=== PATIENT | female | born 1950 | race Caucasian/White ===

== ENCOUNTER 2017-07-12 08:46 | Observation (INO) | payer BC, OTHER ==
[2017-07-12] MEDS ORDERED: Sodium Chloride 0.9% 1,000 ML IV ONE (08:49)
--- NOTE | 2017-07-12 08:51 | EDM.PDOC ---
ED HPI GENERAL MEDICAL PROBLEM - General Stated Complaint: ABDOMINAL PAIN Time Seen by Provider: 07/12/17 08:50 Source of Information: Reports: Patient - History of Present Illness INITIAL COMMENTS - FREE TEXT/NARRATIVE: HISTORY AND PHYSICAL: History of present illness: She presents via EMS, EMS was called due to abdominal pain he found patient to be atrial fibrillation with a rate up to 180, this had improved by arrival to the emergency room Complaint of abdominal pain/epigastric pain 5 out of 10 radiating to the back, pain began yesterday with 2 out of 10 increasing to 8 out of 10 this morning resulting in calling the EMS, received 2 of morphine here in the ER pain now 5 out of 10 patient in no distress History of atrial fibrillation her rate has been up to the 130s per EMS on arrival rate is 101 Patient has a known history of atrial fibrillation and MTHFR deficiency Review of systems: As per history of present illness and below otherwise all systems reviewed and negative. Past medical history: As per history of present illness and as reviewed below otherwise noncontributory. Surgical history: As per history of present illness and as reviewed below otherwise noncontributory. Social history: No reported history of drug or alcohol abuse. Family history: As per history of present illness and as reviewed below otherwise noncontributory. Physical exam: HEENT: Atraumatic, normocephalic, pupils reactive, negative for conjunctival pallor or scleral icterus, mucous membranes moist, throat clear, neck supple, nontender, trachea midline. Lungs: Clear to auscultation, breath sounds equal bilaterally, chest nontender. Heart: S1S2, regular, negative for clicks, rubs, or JVD. Abdomen: Soft, nondistended, nontender. Negative for masses or hepatosplenomegaly. Negative for costovertebral tenderness. Pelvis: Stable nontender. Genitourinary: Deferred. Rectal: Deferred. Extremities: Atraumatic, negative for cords or calf pain. Neurovascular unremarkable. Neuro: Awake, alert, oriented. Cranial nerves II through XII unremarkable. Cerebellum unremarkable. Motor and sensory unremarkable throughout. Exam nonfocal. Diagnostics: [CBC CMP cardiac enzymes amylase lipase UA INR EKG Chest 1 view ]CT abdomen pelvis no contrast, initially contrast was ordered however creatinine is 1.5 Therapeutics: [Normal saline Morphine 2 mg IV Zofran 8 mg IV Lopressor 5 mg IV ] Impression: Abdominal pain [Atrial fibrillation with RVR, currently controlled Definitive disposition and diagnosis as appropriate pending reevaluation and review of above. Middle Abdominal Pain Score (Numeric/FACES): 9 Lower back Pain Score (Numeric/FACES): 6 - Related Data Allergies Allergy/AdvReac Type Severity Reaction Status Date / Time codeine Allergy Severe Respiratory Verified 07/12/17 09:31 Distress Home Meds: Home Meds Thyroid,Pork [Nature-Throid] 65 mg PO ASDIRECTED 07/12/17 [History] ED ROS GENERAL - Review of Systems Review Of Systems: ROS reveals no pertinent complaints other than HPI. ED EXAM, GENERAL - Physical Exam Exam: See Below Course - Vital Signs Last Recorded V/S: Last Vital Signs Temp 96.0 F 07/13/17 12:00 Pulse 82 07/13/17 12:00 Resp 20 07/13/17 12:00 BP 145/66 H 07/13/17 12:00 Pulse Ox 98 07/13/17 12:00 - Orders/Labs/Meds Labs: Laboratory Tests 07/12/17 07/12/17 07/12/17 Range/Units 09:11 09:11 09:11 WBC 5.06 (4.0-11.0) K/uL RBC 4.69 (4.30-5.90) M/uL Hgb 14.3 (12.0-16.0) g/dL Hct 42.2 (36.0-46.0) % MCV 90.0 (80.0-98.0) fL MCH 30.5 (27.0-32.0) pg MCHC 33.9 (31.0-37.0) g/dL RDW Std Deviation 43.0 (28.0-62.0) fl RDW Coeff of Tai 13 (11.0-15.0) % Plt Count 180 (150-400) K/uL MPV 12.00 (7.40-12.00) fL Neut % (Auto) 56.7 (48.0-80.0) % Lymph % (Auto) 35.6 (16.0-40.0) % [place] % (Auto) 6.7 (0.0-15.0) % Eos % (Auto) 0.6 (0.0-7.0) % Baso % (Auto) 0.4 (0.0-1.5) % Neut # (Auto) 2.9 (1.4-5.7) K/uL Lymph # (Auto) 1.8 (0.6-2.4) K/uL [place] # (Auto) 0.3 (0.0-0.8) K/uL Eos # (Auto) 0.0 (0.0-0.7) K/uL Baso # (Auto) 0.0 (0.0-0.1) K/uL Nucleated RBC % 0.0 /100WBC Nucleated RBCs # 0 K/uL INR Sodium 143 (136-145) mmol/L Potassium 3.8 (3.5-5.1) mmol/L Chloride 109 H (98-107) mmol/L Carbon Dioxide 19.3 L (21.0-32.0) mmol/L BUN 25 H (7.0-18.0) mg/dL Creatinine 1.5 H (0.6-1.0) mg/dL Est Cr Clr Drug Dosing 35.47 mL/min Estimated GFR (MDRD) 35.0 ml/min Glucose 150 H (74-106) mg/dL Calcium 9.0 (8.5-10.1) mg/dL Total Bilirubin 0.3 (0.2-1.0) mg/dL AST 20 (15-37) IU/L ALT 22 (14-63) IU/L Alkaline Phosphatase 69 (46-116) U/L Creatine Kinase 97 (26-308) U/L CK-MB (CK-2) 1.0 (0-3.6) ng/mL Troponin I < 0.050 (0.000-0.056) ng/mL B-Natriuretic Peptide 226 H (<100) PG/ML Total Protein 6.6 (6.4-8.2) g/dL Albumin 3.2 L (3.4-5.0) g/dL Globulin 3.4 (2.0-3.5) g/dL Albumin/Globulin Ratio 0.9 L (1.3-2.8) Amylase 48 (25-115) U/L Lipase 113 (73-393) U/L Urine Color Urine Appearance Urine pH (5.0-8.0) Ur Specific [place] (1.001-1.035) Urine Protein (NEGATIVE) mg/dL Urine Glucose (UA) (NEGATIVE) mg/dL Urine Ketones (NEGATIVE) mg/dL Urine Occult Blood (NEGATIVE) Urine Nitrite (NEGATIVE) Urine Bilirubin (NEGATIVE) Urine Urobilinogen (<2.0) EU/dL Ur Leukocyte Esterase (NEGATIVE) Urine RBC (0-2/HPF) Urine WBC (0-5/HPF) Ur Epithelial Cells (NONE-FEW) Urine Bacteria (NEGATIVE) Urine Mucus (NONE-MOD) Urine Opiates Screen (NEGATIVE) Ur Oxycodone Screen (NEGATIVE) Urine Methadone Screen (NEGATIVE) Ur Barbiturates Screen (NEGATIVE) Ur Phencyclidine Scrn (NEGATIVE) Ur Amphetamine Screen (NEGATIVE) U Methamphetamines Scrn (NEGATIVE) U Benzodiazepines Scrn (NEGATIVE) U Cocaine Metab Screen (NEGATIVE) U Marijuana (THC) Screen (NEGATIVE) 07/12/17 07/12/17 07/12/17 Range/Units 10:18 12:02 12:02 WBC (4.0-11.0) K/uL RBC (4.30-5.90) M/uL Hgb (12.0-16.0) g/dL Hct (36.0-46.0) % MCV (80.0-98.0) fL MCH (27.0-32.0) pg MCHC (31.0-37.0) g/dL RDW Std Deviation (28.0-62.0) fl RDW Coeff of Tai (11.0-15.0) % Plt Count (150-400) K/uL MPV (7.40-12.00) fL Neut % (Auto) (48.0-80.0) % Lymph % (Auto) (16.0-40.0) % [place] % (Auto) (0.0-15.0) % Eos % (Auto) (0.0-7.0) % Baso % (Auto) (0.0-1.5) % Neut # (Auto) (1.4-5.7) K/uL Lymph # (Auto) (0.6-2.4) K/uL [place] # (Auto) (0.0-0.8) K/uL Eos # (Auto) (0.0-0.7) K/uL Baso # (Auto) (0.0-0.1) K/uL Nucleated RBC % /100WBC Nucleated RBCs # K/uL INR 1.05 Sodium (136-145) mmol/L Potassium (3.5-5.1) mmol/L Chloride (98-107) mmol/L Carbon Dioxide (21.0-32.0) mmol/L BUN (7.0-18.0) mg/dL Creatinine (0.6-1.0) mg/dL Est Cr Clr Drug Dosing mL/min Estimated GFR (MDRD) ml/min Glucose (74-106) mg/dL Calcium (8.5-10.1) mg/dL Total Bilirubin (0.2-1.0) mg/dL AST (15-37) IU/L ALT (14-63) IU/L Alkaline Phosphatase (46-116) U/L Creatine Kinase (26-308) U/L CK-MB (CK-2) (0-3.6) ng/mL Troponin I (0.000-0.056) ng/mL B-Natriuretic Peptide (<100) PG/ML Total Protein (6.4-8.2) g/dL Albumin (3.4-5.0) g/dL Globulin (2.0-3.5) g/dL Albumin/Globulin Ratio (1.3-2.8) Amylase (25-115) U/L Lipase (73-393) U/L Urine Color YELLOW Urine Appearance CLEAR Urine pH 7.0 (5.0-8.0) Ur Specific [place] 1.015 (1.001-1.035) Urine Protein NEGATIVE (NEGATIVE) mg/dL Urine Glucose (UA) NEGATIVE (NEGATIVE) mg/dL Urine Ketones NEGATIVE (NEGATIVE) mg/dL Urine Occult Blood NEGATIVE (NEGATIVE) Urine Nitrite NEGATIVE (NEGATIVE) Urine Bilirubin NEGATIVE (NEGATIVE) Urine Urobilinogen 0.2 (<2.0) EU/dL Ur Leukocyte Esterase NEGATIVE (NEGATIVE) Urine RBC NONE SEEN (0-2/HPF) Urine WBC 0-1 (0-5/HPF) Ur Epithelial Cells RARE (NONE-FEW) Urine Bacteria RARE (NEGATIVE) Urine Mucus LIGHT (NONE-MOD) Urine Opiates Screen POSITIVE (NEGATIVE) Ur Oxycodone Screen NEGATIVE (NEGATIVE) Urine Methadone Screen NEGATIVE (NEGATIVE) Ur Barbiturates Screen NEGATIVE (NEGATIVE) Ur Phencyclidine Scrn NEGATIVE (NEGATIVE) Ur Amphetamine Screen NEGATIVE (NEGATIVE) U Methamphetamines Scrn NEGATIVE (NEGATIVE) U Benzodiazepines Scrn NEGATIVE (NEGATIVE) U Cocaine Metab Screen NEGATIVE (NEGATIVE) U Marijuana (THC) Screen NEGATIVE (NEGATIVE) Meds: Medications Discontinued Medications Generic Name Dose Route Start Last Admin Trade Name Freq PRN Reason Stop Dose Admin Sodium Chloride 1,000 mls @ 999 mls/hr 07/12/17 08:49 07/12/17 09:16 Normal Saline IV 07/12/17 09:49 999 mls/hr STAT ONE Administration Sodium Chloride 1,000 mls @ 125 mls/hr 07/12/17 11:45 07/12/17 12:01 Normal Saline IV 125 mls/hr STAT DEEPALI Administration Sodium Chloride 1,000 mls @ 150 mls/hr 07/12/17 18:45 07/13/17 02:24 Normal Saline IV 150 mls/hr ASDIRECTED DEEPALI Administration Metoprolol Tartrate 5 mg 07/12/17 09:00 07/12/17 15:08 Lopressor IVPUSH 07/12/17 09:11 Not Given Q5M DEEPALI Morphine Sulfate 2 mg 07/12/17 08:55 07/12/17 09:09 Morphine IVPUSH 07/12/17 08:56 2 mg ONETIME ONE Administration Non-Formulary Medication 65 mg 07/12/17 21:15 Thyroid,Pork [Nature-Throid] PO ASDIRECTED DEEPALI Ondansetron HCl 8 mg 07/12/17 08:58 07/12/17 09:08 Zofran IVPUSH 07/12/17 08:59 8 mg ONETIME ONE Administration Pantoprazole Sodium 80 mg 07/12/17 11:35 07/12/17 12:01 Protonix Iv IVPUSH 07/12/17 11:36 80 mg .BOLUS ONE Administration [Nature-Throid] 65 1 each 07/13/17 07:00 07/13/17 14:36 Mg PO Not Given 0700,1300 [facility] Departure - Departure Time of Disposition: 07:58 Disposition: Refer to Observation Condition: Poor Clinical Impression: Atrial fibrillation - Discharge Information
[2017-07-12] MEDS ORDERED: Morphine 4 MG/ML Syringe IVPUSH ONE (08:55)
[2017-07-12] MEDS ORDERED: Ondansetron 4 MG/2 ML SDV IVPUSH ONE (08:58)
[2017-07-12] MEDS: Metoprolol Tartrate 5 MG/5 ML SDV IVPUSH SCH ×2 (09:20→15:08)
--- NOTE | 2017-07-12 10:00 | CR ---
EXAMINATION: Portable chest radiograph. HISTORY: Pain. FINDINGS: The trachea is midline. The cardiomediastinal silhouette is within normal limits. No pulmonary infilt rates, effusions or pneumothorax. Osseous structures appear unremarkable. IMPRESSION: No acute cardiopulmonary process.
[2017-07-12 10:40] LABS: CHLORIDE,CL 109 mmol/L (98-107); SODIUM,NA 143 mmol/L (136-145)
[2017-07-12] MEDS ORDERED: Pantoprazole 40 MG Vial IVPUSH ONE (11:35)
--- NOTE | 2017-07-12 11:43 | CT ---
CT of the abdomen and pelvis without contrast. HISTORY: Pain TECHNIQUE: Axial CT images were obtained of the abdomen and pelvis without contrast. Coronal and sagi ttal reconstructions obtained. FINDINGS: Mild atelectasis within the lung bases. Tiny hepatic cysts noted. The spleen, adrenal glands, and pancreas appear unremarkable for noncontras t examination. The gallbladder appears normal. There is no bulky retroperitoneal lymphadenopathy. No abdominal ascites. There are no calcifications noted within the kidneys or along the courses of the ureters bilaterally. Renal cortical and peripelvic cysts noted. The large and small bowel are normal in caliber without evidence of obstruction. Minimal diverticulos is without evidence of diverticulitis. The appendix is not well characterized. There is no bulky pelv ic lymphadenopathy. No free fluid. No free air. The urinary bladder appears normal. Mild compression deformity along the superior endplate of L1 age indeterminate. IMPRESSION: 1. No acute findings within the abdomen or pelvis. 2. Mild compression deformity along the superior endplate of L1. 3. Minimal diverticulosis.
[2017-07-12] MEDS ORDERED: Sodium Chloride 0.9% 1,000 ML IV SCH (11:45)
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
[2017-07-12] MEDS: Sodium Chloride 0.9% 1,000 ML IV SCH (20:10)
[2017-07-12] MEDS ORDERED: Non-Formulary Medication 1 Each (Thyroid,Pork [Nature-Throid] 65 MG) PO SCH (21:15)
[2017-07-13] MEDS: Sodium Chloride 0.9% 1,000 ML IV SCH (02:24)
[2017-07-13] MEDS: NATURE THROID 65 MG PO SCH ×2 (07:00→14:36)
--- NOTE | 2017-07-13 11:52 | PCM.DCSUM1 ---
Discharge Summary - Discharge Data Discharge Date: 07/13/17 Discharge Disposition: Home, Self-Care 01 Condition: Stable - Discharge Diagnosis/Problem(s) (1) Atrial fibrillation SNOMED Code(s): 66163469 ICD Code: I48.91 - UNSPECIFIED ATRIAL FIBRILLATION Status: Acute (2) Abdominal pain SNOMED Code(s): 26088410 ICD Code: R10.9 - UNSPECIFIED ABDOMINAL PAIN Status: Acute - Discharge Plan Home Medications: Home Meds Thyroid,Pork [Nature-Throid] 65 mg PO ASDIRECTED 07/12/17 [History] Patient Handouts: Abdominal Pain, Adult, [id number], Atrial Fibrillation, [id number] Referrals: [facility] [Outside] Jayden Gonzalez MD [Resident] - 07/20/17 2:30 pm - Patient Data Vitals - Most Recent: Last Vital Signs Temp 36.1 C 07/13/17 08:00 Pulse 88 07/13/17 08:00 Resp 22 H 07/13/17 08:00 BP 150/59 H 07/13/17 08:00 Pulse Ox 96 07/13/17 08:00 Weight - Most Recent: 97.522 kg I&O - Last 24 hours: Intake & Output 07/12/17 07/13/17 07/13/17 22:59 06:59 14:59 Intake Total 999 995 Balance 999 995 Lab Results - Last 24 hrs: Laboratory Results - last 24 hr 07/12/17 07/12/17 07/12/17 Range/Units 12:02 12:02 17:05 WBC (4.0-11.0) K/uL RBC (4.30-5.90) M/uL Hgb (12.0-16.0) g/dL Hct (36.0-46.0) % MCV (80.0-98.0) fL MCH (27.0-32.0) pg MCHC (31.0-37.0) g/dL RDW Std Deviation (28.0-62.0) fl RDW Coeff of Tai (11.0-15.0) % Plt Count (150-400) K/uL MPV (7.40-12.00) fL Neut % (Auto) (48.0-80.0) % Lymph % (Auto) (16.0-40.0) % Nash % (Auto) (0.0-15.0) % Eos % (Auto) (0.0-7.0) % Baso % (Auto) (0.0-1.5) % Neut # (Auto) (1.4-5.7) K/uL Lymph # (Auto) (0.6-2.4) K/uL Nash # (Auto) (0.0-0.8) K/uL Eos # (Auto) (0.0-0.7) K/uL Baso # (Auto) (0.0-0.1) K/uL Nucleated RBC % /100WBC Nucleated RBCs # K/uL Lactate 2.1 H (0.20-2.00) mmol/L Magnesium (1.5-2.0) mg/dL Troponin I (0.000-0.056) ng/mL TSH 3rd Generation (0.36-3.74) uIU/mL Urine Color YELLOW Urine Appearance CLEAR Urine pH 7.0 (5.0-8.0) Ur Specific [place] 1.015 (1.001-1.035) Urine Protein NEGATIVE (NEGATIVE) mg/dL Urine Glucose (UA) NEGATIVE (NEGATIVE) mg/dL Urine Ketones NEGATIVE (NEGATIVE) mg/dL Urine Occult Blood NEGATIVE (NEGATIVE) Urine Nitrite NEGATIVE (NEGATIVE) Urine Bilirubin NEGATIVE (NEGATIVE) Urine Urobilinogen 0.2 (<2.0) EU/dL Ur Leukocyte Esterase NEGATIVE (NEGATIVE) Urine RBC NONE SEEN (0-2/HPF) Urine WBC 0-1 (0-5/HPF) Ur Epithelial Cells RARE (NONE-FEW) Urine Bacteria RARE (NEGATIVE) Urine Mucus LIGHT (NONE-MOD) Urine Opiates Screen POSITIVE (NEGATIVE) Ur Oxycodone Screen NEGATIVE (NEGATIVE) Urine Methadone Screen NEGATIVE (NEGATIVE) Ur Barbiturates Screen NEGATIVE (NEGATIVE) Ur Phencyclidine Scrn NEGATIVE (NEGATIVE) Ur Amphetamine Screen NEGATIVE (NEGATIVE) U Methamphetamines Scrn NEGATIVE (NEGATIVE) U Benzodiazepines Scrn NEGATIVE (NEGATIVE) U Cocaine Metab Screen NEGATIVE (NEGATIVE) U Marijuana (THC) Screen NEGATIVE (NEGATIVE) 07/12/17 07/12/17 07/12/17 Range/Units 17:05 19:06 22:34 WBC (4.0-11.0) K/uL RBC (4.30-5.90) M/uL Hgb (12.0-16.0) g/dL Hct (36.0-46.0) % MCV (80.0-98.0) fL MCH (27.0-32.0) pg MCHC (31.0-37.0) g/dL RDW Std Deviation (28.0-62.0) fl RDW Coeff of Tai (11.0-15.0) % Plt Count (150-400) K/uL MPV (7.40-12.00) fL Neut % (Auto) (48.0-80.0) % Lymph % (Auto) (16.0-40.0) % Nash % (Auto) (0.0-15.0) % Eos % (Auto) (0.0-7.0) % Baso % (Auto) (0.0-1.5) % Neut # (Auto) (1.4-5.7) K/uL Lymph # (Auto) (0.6-2.4) K/uL Nash # (Auto) (0.0-0.8) K/uL Eos # (Auto) (0.0-0.7) K/uL Baso # (Auto) (0.0-0.1) K/uL Nucleated RBC % /100WBC Nucleated RBCs # K/uL Lactate 1.8 (0.20-2.00) mmol/L Magnesium 1.7 (1.5-2.0) mg/dL Troponin I < 0.050 < 0.050 (0.000-0.056) ng/mL TSH 3rd Generation 1.78 (0.36-3.74) uIU/mL Urine Color Urine Appearance Urine pH (5.0-8.0) Ur Specific [place] (1.001-1.035) Urine Protein (NEGATIVE) mg/dL Urine Glucose (UA) (NEGATIVE) mg/dL Urine Ketones (NEGATIVE) mg/dL Urine Occult Blood (NEGATIVE) Urine Nitrite (NEGATIVE) Urine Bilirubin (NEGATIVE) Urine Urobilinogen (<2.0) EU/dL Ur Leukocyte Esterase (NEGATIVE) Urine RBC (0-2/HPF) Urine WBC (0-5/HPF) Ur Epithelial Cells (NONE-FEW) Urine Bacteria (NEGATIVE) Urine Mucus (NONE-MOD) Urine Opiates Screen (NEGATIVE) Ur Oxycodone Screen (NEGATIVE) Urine Methadone Screen (NEGATIVE) Ur Barbiturates Screen (NEGATIVE) Ur Phencyclidine Scrn (NEGATIVE) Ur Amphetamine Screen (NEGATIVE) U Methamphetamines Scrn (NEGATIVE) U Benzodiazepines Scrn (NEGATIVE) U Cocaine Metab Screen (NEGATIVE) U Marijuana (THC) Screen (NEGATIVE) 07/13/17 Range/Units 05:43 WBC 5.73 (4.0-11.0) K/uL RBC 4.12 L (4.30-5.90) M/uL Hgb 12.5 (12.0-16.0) g/dL Hct 37.3 (36.0-46.0) % MCV 90.5 (80.0-98.0) fL MCH 30.3 (27.0-32.0) pg MCHC 33.5 (31.0-37.0) g/dL RDW Std Deviation 43.8 (28.0-62.0) fl RDW Coeff of Tai 13 (11.0-15.0) % Plt Count 160 (150-400) K/uL MPV 11.50 (7.40-12.00) fL Neut % (Auto) 53.1 (48.0-80.0) % Lymph % (Auto) 38.6 (16.0-40.0) % Nash % (Auto) 7.2 (0.0-15.0) % Eos % (Auto) 0.9 (0.0-7.0) % Baso % (Auto) 0.2 (0.0-1.5) % Neut # (Auto) 3.1 (1.4-5.7) K/uL Lymph # (Auto) 2.2 (0.6-2.4) K/uL Nash # (Auto) 0.4 (0.0-0.8) K/uL Eos # (Auto) 0.1 (0.0-0.7) K/uL Baso # (Auto) 0.0 (0.0-0.1) K/uL Nucleated RBC % 0.0 /100WBC Nucleated RBCs # 0 K/uL Lactate (0.20-2.00) mmol/L Magnesium (1.5-2.0) mg/dL Troponin I (0.000-0.056) ng/mL TSH 3rd Generation (0.36-3.74) uIU/mL Urine Color Urine Appearance Urine pH (5.0-8.0) Ur Specific [place] (1.001-1.035) Urine Protein (NEGATIVE) mg/dL Urine Glucose (UA) (NEGATIVE) mg/dL Urine Ketones (NEGATIVE) mg/dL Urine Occult Blood (NEGATIVE) Urine Nitrite (NEGATIVE) Urine Bilirubin (NEGATIVE) Urine Urobilinogen (<2.0) EU/dL Ur Leukocyte Esterase (NEGATIVE) Urine RBC (0-2/HPF) Urine WBC (0-5/HPF) Ur Epithelial Cells (NONE-FEW) Urine Bacteria (NEGATIVE) Urine Mucus (NONE-MOD) Urine Opiates Screen (NEGATIVE) Ur Oxycodone Screen (NEGATIVE) Urine Methadone Screen (NEGATIVE) Ur Barbiturates Screen (NEGATIVE) Ur Phencyclidine Scrn (NEGATIVE) Ur Amphetamine Screen (NEGATIVE) U Methamphetamines Scrn (NEGATIVE) U Benzodiazepines Scrn (NEGATIVE) U Cocaine Metab Screen (NEGATIVE) U Marijuana (THC) Screen (NEGATIVE) Med Orders - Current: Current Medications Sodium Chloride (Normal Saline) 1,000 mls @ 150 mls/hr IV ASDIRECTED [facility] Last Admin: 07/13/17 02:24 Dose: 150 mls/hr [Nature-Throid] 65 (Mg) 1 each PO 0700,1300 [facility] Discontinued Medications Sodium Chloride (Normal Saline) 1,000 mls @ 999 mls/hr IV STAT ONE Stop: 07/12/17 09:49 Last Admin: 07/12/17 09:16 Dose: 999 mls/hr Sodium Chloride (Normal Saline) 1,000 mls @ 125 mls/hr IV STAT [facility] Last Admin: 07/12/17 12:01 Dose: 125 mls/hr Metoprolol Tartrate (Lopressor) 5 mg IVPUSH Q5M [facility] Stop: 07/12/17 09:11 Last Admin: 07/12/17 15:08 Dose: Not Given Morphine Sulfate (Morphine) 2 mg IVPUSH ONETIME ONE Stop: 07/12/17 08:56 Last Admin: 07/12/17 09:09 Dose: 2 mg Non-Formulary Medication (Thyroid,Pork [Nature-Throid]) 65 mg PO ASDIRECTED [facility] Ondansetron HCl (Zofran) 8 mg IVPUSH ONETIME ONE Stop: 07/12/17 08:59 Last Admin: 07/12/17 09:08 Dose: 8 mg Pantoprazole Sodium (Protonix Iv) 80 mg IVPUSH .BOLUS ONE Stop: 07/12/17 11:36 Last Admin: 07/12/17 12:01 Dose: 80 mg
== END 2017-07-13 13:00 | disposition home or self-care (01) ==
LOC: MW.ED 08:46 → MW.MS 12:59
PROVIDERS: ADMIT Internal Medicine; ATTEND Internal Medicine
DX: I48.91 Unspecified atrial fibrillation (principal); R10.9 Unspecified abdominal pain; E03.9 Hypothyroidism, unspecified; Z88.5 Allergy status to narcotic agent
CPT/HCPCS: 36415; 71045; 74176; 80053; 80305; 81001; 82150; 82550; 82553; 83605; 83690; 83735; 83880; 84443; 84484; 85025; 85610; 93005; 96361; 96374; 96375; 99285; C9113; J2270; J2405; J7040; 99283

== ENCOUNTER 2018-01-11 05:47 | Emergency (ER) | payer MEDICARE, BC ==
[2018-01-11] MEDS ORDERED: Sodium Chloride 0.9% 2.5 ML Syringe FLUSH PRN (06:26)
[2018-01-11] MEDS ORDERED: Sodium Chloride 0.9% 10 ML Syringe FLUSH PRN (06:26)
[2018-01-11] MEDS ORDERED: Sodium Chloride 0.9% 1,000 ML IV ONE (07:05)
[2018-01-11 07:07] LABS: CHLORIDE,CL 107 mmol/L (98-107); SODIUM,NA 140 mmol/L (136-145)
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
[2018-01-11] MEDS ORDERED: Iopamidol 612 MG/ML 75 ML Bottle IVPUSH ONE (07:45)
[2018-01-11] MEDS ORDERED: Pantoprazole 40 MG Vial IVPUSH ONE ×2 (08:29→10:33)
--- NOTE | 2018-01-11 11:28 | CT ---
EXAM DATE: 01/11/18 PATIENT'S AGE: 67 Patient: JANENE MEJIA Facility: [place], [place] Site . Site : 1950 Study: CT Abdomen/Pelvis -01/11/2018 7:48:28 AM Ordering Physician: Amy Corrales Final Report: INDICATION: Left upper quadrant abdominal pain. TECHNIQUE: Contrast-enhanced CT of the abdomen and pelvis. 75 cc nonionic Isovue-300 administered. COMPARISON: July 12, 2017. FINDINGS: Clear included lung bases. The liver is negative for masses or biliary dilatation. The spleen is not enlarged. The pancreas, gallbladder, and adrenal glands are within normal limits. Small right renal cysts. No hydronephrosis. No stone or solid renal mass. There is likely a tiny esophageal hiatal hernia. The stomach appears to be mildly thick-walled but it is largely decompressed. Some degree of gastritis could not be entirely excluded. Please correlate clinically. Minimal vascular calcification within a normal caliber abdominal aorta and iliac arteries. Absent uterus and likely the ovaries as well. No evidence for appendicitis or diverticular disease. No bowel obstruction or ileus and no ascites or lymphadenopathy. Degenerative disc disease at L5. Superior endplate compression of L1 entirely unchanged. IMPRESSION: 1. No acute abdominopelvic process confidently identified. 2. The stomach is largely decompressed. Questionable mild gastric wall thickening. Clinical correlation suggested for any possible gastritis. Please note that all CT scans at this facility use dose modulation, iterative reconstruction, and/or weight-based dosing when appropriate to reduce radiation dose to as low as reasonably achievable. Dictated by Ambrose Plata MD @ Jan 11 2018 8:08AM (Electronic Signature) Report Signed by Proxy. KAREN
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
== END 2018-01-11 10:40 | disposition home or self-care (01) ==
LOC: MW.ED 05:47
DX: R10.12 Left upper quadrant pain (principal); I48.91 Unspecified atrial fibrillation; Z91.14 Patient's other noncompliance with medication regimen; Z88.5 Allergy status to narcotic agent; Z90.710 Acquired absence of both cervix and uterus; E03.9 Hypothyroidism, unspecified
CPT/HCPCS: 36415; 74177; 80053; 81001; 82150; 83690; 85025; 86677; 93005; 96361; 96374; 99284; C9113; J7040

== ENCOUNTER 2019-08-08 10:38 | Emergency (ER) | payer MEDICARE, BC ==
[2019-08-08] MEDS ORDERED: Sodium Chloride 0.9% 1,000 ML IV ONE (11:15)
[2019-08-08] MEDS ORDERED: Ketorolac 30 MG/ML SDV IVPUSH ONE (11:15)
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
--- NOTE | 2019-08-08 12:09 | CT ---
Head CT Technique: Multiple axial sections through the brain were obtained. Intravenous contrast was not utilized. Comparison: No prior intracranial imaging is available. Findings: Ventricles along with basal cisterns and sulci over the convexities are within normal limits for the patient's age. No abnormal parenchymal densities are seen. No evidence of intracranial hemorrhage. No midline shift or mass-effect is seen. Paranasal sinuses show nothing acute. Soft tissue density is noted within the posterior right mastoid sinus. Other portions of the mastoid sinuses appear clear. No acute calvarial abnormality is appreciated. Impression: 1. Soft tissue material within the right posterior mastoid sinus. This is most likely chronic unless patient has symptoms of right-sided mastoiditis. 2. No acute intracranial abnormality is appreciated. Diagnostic code #3 This report was dictated in MDT
[2019-08-08 12:21] LABS: CARBON DIOXIDE,CO2 26.3 mmol/L (21.0-32.0); POTASSIUM,K 5.1 mmol/L (3.5-5.1)
[2019-08-08] MEDS ORDERED: Cephalexin 500 MG Cap PO ONE (12:44)
== END 2019-08-08 13:00 | disposition home or self-care (01) ==
LOC: MW.ED 10:38
DX: G44.209 Tension-type headache, unspecified, not intractable (principal); K04.7 Periapical abscess without sinus; I48.91 Unspecified atrial fibrillation; E03.9 Hypothyroidism, unspecified; Z79.899 Other long term (current) drug therapy; Z88.5 Allergy status to narcotic agent; Z91.040 Latex allergy status
CPT/HCPCS: 36415; 70450; 80053; 85025; 85652; 86140; 96361; 96374; 99284; A9270; J1885; J7030; 99283

== ENCOUNTER 2019-08-08 19:24 | Emergency (ER) | payer MEDICARE, BC ==
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
== END 2019-08-08 20:16 | disposition home or self-care (01) ==
LOC: MW.ED 19:24
DX: B01.9 Varicella without complication (principal); M79.2 Neuralgia and neuritis, unspecified; I48.91 Unspecified atrial fibrillation; F32.9 Major depressive disorder, single episode, unspecified; E03.9 Hypothyroidism, unspecified; Z79.899 Other long term (current) drug therapy; Z88.5 Allergy status to narcotic agent; Z91.040 Latex allergy status
CPT/HCPCS: 99282; 99283

== ENCOUNTER 2019-08-10 10:32 | Emergency (ER) | payer MEDICARE, BC ==
[2019-08-10] MEDS ORDERED: predniSONE 20 MG Tab PO SCH (11:00)
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
[2019-08-10] MEDS ORDERED: Morphine 4 MG/ML Syringe IM ONE (11:43)
[2019-08-10] MEDS ORDERED: Ondansetron 4 MG Tab PO ONE (11:45)
== END 2019-08-10 13:30 | disposition home or self-care (01) ==
LOC: MW.ED 10:32
DX: B02.9 Zoster without complications (principal); I48.91 Unspecified atrial fibrillation; E03.9 Hypothyroidism, unspecified; F32.9 Major depressive disorder, single episode, unspecified; Z88.5 Allergy status to narcotic agent; Z91.040 Latex allergy status; Z91.09 Other allergy status, other than to drugs and biological substances; Z79.899 Other long term (current) drug therapy
CPT/HCPCS: 96372; 99283; A9270; J2270; 99282

== ENCOUNTER 2019-11-14 08:50 | Observation (INO) | payer MEDICARE, BC ==
[2019-11-14 10:28] LABS: BLOOD UREA NITROGEN,BUN 22 mg/dL (7.0-18.0); CARBON DIOXIDE,CO2 21.5 mmol/L (21.0-32.0); CHLORIDE,CL 104 mmol/L (98-107); GLUCOSE RANDOM 128 mg/dL (74-106); SODIUM,NA 138 mmol/L (136-145)
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
[2019-11-14] MEDS ORDERED: Acetaminophen 325 MG Tab PO PRN (15:14)
[2019-11-14] MEDS ORDERED: Albuterol/Ipratropium 3.0-0.5 MG/3 ML Neb Soln NEB PRN (15:14)
[2019-11-14] MEDS ORDERED: Sodium Chloride 0.9% 2.5 ML Syringe FLUSH PRN (15:14)
[2019-11-14] MEDS ORDERED: Docusate Sodium 100 MG Cap PO PRN (15:14)
[2019-11-14] MEDS ORDERED: Ondansetron 4 MG/2 ML SDV IVPUSH PRN (15:14)
[2019-11-14] MEDS ORDERED: Enoxaparin 40 MG/0.4 ML Syringe SUBCUT SCH (15:15)
[2019-11-14] MEDS ORDERED: Furosemide 40 MG/4 ML VIAL IVPUSH ONE (15:18)
[2019-11-14] MEDS ORDERED: traMADol 50 MG Tab PO PRN (15:19)
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
[2019-11-14] MEDS ORDERED: Pregabalin 25 MG Cap PO SCH (18:00)
[2019-11-14] MEDS ORDERED: traMADol 50 MG Tab **OWN MED PO PRN (20:44)
[2019-11-14] MEDS ORDERED: Magnesium Oxide 400 MG Tab PO SCH (21:00)
[2019-11-14] MEDS ORDERED: LIDOCAINE TRDERM SCH (21:00)
[2019-11-14] MEDS ORDERED: Lidocaine 5% 700 MG Patch TRDERM SCH (21:00)
[2019-11-14] MEDS ORDERED: Montelukast 10 MG Tab PO SCH (21:00)
[2019-11-14] MEDS ORDERED: FISH OIL PO SCH (21:00)
[2019-11-15 05:49] LABS: CARBON DIOXIDE,CO2 25.3 mmol/L (21.0-32.0); POTASSIUM,K 4.1 mmol/L (3.5-5.1)
[2019-11-15] MEDS ORDERED: LEVOTHYROXINE 0.137 MG PO SCH (07:30)
[2019-11-15] MEDS ORDERED: LEVOTHYROXINE SODIUM 137 MCG PO SCH (07:30)
[2019-11-15] MEDS: PREGABALIN 25 MG PO SCH ×2 (08:27→12:50)
[2019-11-15] MEDS ORDERED: COENZYME Q10 PO SCH (09:00)
--- NOTE | 2019-11-15 11:01 | PCM.DCSUM1 ---
<Flakito Lawrence M - Last Filed: 11/15/19 11:20> Discharge Summary - Hospital Course Free Text/Narrative:: 68-year-old female admitted for chest pain and shortness of breath. She has a PMH of atrial fibrillation, hypothyroidism, CKD and SAGAR. Patient noted that for the past few weeks she was having orthopnea, increasing leg edema and weight gain of 20 lbs since August 2019. CXR was unremarkable. Troponins were trended and were negative. BNP on admission was 431. UA unremarkable. ECHO ordered and is currently pending. Patient remained on telemetry during her hospitalization and noted to be in a-fib with HR of 70-100's. Patient responded to lasix which caused significant improvement in her leg edema and orthopnea. A diagnosis of heart failure was made and patient was started on lisinopril and lasix prn. She was also started on Eliquis for anticoagulation for a-fib as CHADSVASC score was 2. Recommend repeat sleep study. Advised to follow-up with PCP as well as nephrology and cardiology referrals. - Discharge Data Discharge Date: 11/15/19 Discharge Disposition: Home, Self-Care 01 Condition: Stable - Referral to Home Health Primary Care Physician: PCP None - Patient Instructions Diet: Low Sodium, Fluid Restriction Diet, Other: < 2 g salt daily Fluid Restriction: 2000 mL Activity: As Tolerated Notify Provider of: Fever, Increased Pain, Swelling and Redness, Drainage, Nausea and/or Vomiting Other/Special Instructions: shortness of breath. chest pain - Discharge Plan *PRESCRIPTION DRUG MONITORING PROGRAM REVIEWED*: Not Applicable *COPY OF PRESCRIPTION DRUG MONITORING REPORT IN PATIENT RENU: Not Applicable Prescriptions/Med Rec: Apixaban [Eliquis] 5 mg PO BID 30 Days #60 tablet Furosemide 20 mg PO DAILY PRN 30 Days #30 tablet PRN Reason: Other lisinopriL [Lisinopril] 10 mg PO DAILY 30 Days #30 tablet Home Medications: Home Meds Pure Pg Fish Oil 2,000 mg PO BEDTIME 02/18/18 [History] Vitamin D3/Vitamin K2 (Mk4) [K2 Plus D3 Tablet] 5,000 units PO DAILY 02/18/18 [History] Calcium/Mag/Passion Flow/Valer [Myocalm] 2 tab PO BEDTIME 08/08/19 [History] Rhmd Coq10 1 tab PO DAILY 08/08/19 [History] Serenity 2 tab PO BEDTIME PRN 08/08/19 [History] Levothyroxine Sodium [Synthroid] 137 mcg PO ACBREAKFAST 11/14/19 [History] Lidocaine [Lidocaine 5%] 1 patch TRDERM BEDTIME 11/14/19 [History] Magnesium 400 mg PO BEDTIME 11/14/19 [History] Montelukast [Singulair] 10 mg PO BEDTIME 11/14/19 [History] Pregabalin 25 mg PO TID 11/14/19 [History] traMADol [Ultram] 50 mg PO TID PRN 11/14/19 [History] Apixaban [Eliquis] 5 mg PO BID 30 Days #60 tablet 11/15/19 [Rx] Furosemide 20 mg PO DAILY PRN 30 Days #30 tablet 11/15/19 [Rx] lisinopriL [Lisinopril] 10 mg PO DAILY 30 Days #30 tablet 11/15/19 [Rx] Oxygen Therapy Mode: Room Air Patient Handouts: Furosemide tablets, Nonspecific Chest Pain, Adult, [id number], Lisinopril tablets, Apixaban oral tablets Referrals: [facility] [Outside] Robi Guajardo MD [Ordering Only Provider] - 11/22/19 10:30 am (Arrive 15 minutes early with a photo ID, insurance card, and a mask. ) - Discharge Summary/Plan Comment DC Time >30 min.: No - Patient Data Vitals - Most Recent: Last Vital Signs Temp 36.1 C 11/15/19 07:20 Pulse 65 11/15/19 07:20 Resp 17 11/15/19 07:20 BP 131/85 11/15/19 07:20 Pulse Ox 94 L 11/15/19 07:20 Weight - Most Recent: 106.866 kg I&O - Last 24 hours: Intake & Output 11/14/19 11/15/19 11/15/19 22:59 06:59 14:59 Intake Total 450 500 Output Total 1300 1600 Balance -850 -1100 Lab Results - Last 24 hrs: Laboratory Results - last 24 hr 11/14/19 11/14/19 11/14/19 Range/Units 09:10 11:02 12:10 WBC (4.0-11.0) K/uL RBC (4.30-5.90) M/uL Hgb (12.0-16.0) g/dL Hct (36.0-46.0) % MCV (80.0-98.0) fL MCH (27.0-32.0) pg MCHC (31.0-37.0) g/dL RDW Std Deviation (28.0-62.0) fl RDW Coeff of Tai (11.0-15.0) % Plt Count (150-400) K/uL MPV (7.40-12.00) fL Neut % (Auto) (48.0-80.0) % Lymph % (Auto) (16.0-40.0) % [place] % (Auto) (0.0-15.0) % Eos % (Auto) (0.0-7.0) % Baso % (Auto) (0.0-1.5) % Neut # (Auto) (1.4-5.7) K/uL Lymph # (Auto) (0.6-2.4) K/uL [place] # (Auto) (0.0-0.8) K/uL Eos # (Auto) (0.0-0.7) K/uL Baso # (Auto) (0.0-0.1) K/uL Nucleated RBC % /100WBC Nucleated RBCs # K/uL Sodium (136-145) mmol/L Potassium (3.5-5.1) mmol/L Chloride (98-107) mmol/L Carbon Dioxide (21.0-32.0) mmol/L BUN (7.0-18.0) mg/dL Creatinine (0.6-1.0) mg/dL Est Cr Clr Drug Dosing mL/min Estimated GFR (MDRD) ml/min Glucose (74-106) mg/dL Calcium (8.5-10.1) mg/dL Magnesium (1.8-2.4) mg/dL Troponin I < 0.050 (0.000-0.056) ng/mL Triglycerides 127 (0-200) mg/dL Cholesterol 166 (50-200) mg/dL LDL Cholesterol, Calc 107 (60-180) mg/dL VLDL Cholesterol 25 (5-55) mg/dL HDL Cholesterol 34 L (40-60) mg/dL Cholesterol/HDL Ratio 4.9 (3.3-6.0) Urine Color YELLOW Urine Appearance CLEAR Urine pH 8.0 (5.0-8.0) Ur Specific [place] 1.015 (1.001-1.035) Urine Protein NEGATIVE (NEGATIVE) mg/dL Urine Glucose (UA) NEGATIVE (NEGATIVE) mg/dL Urine Ketones NEGATIVE (NEGATIVE) mg/dL Urine Occult Blood NEGATIVE (NEGATIVE) Urine Nitrite NEGATIVE (NEGATIVE) Urine Bilirubin NEGATIVE (NEGATIVE) Urine Urobilinogen 0.2 (<2.0) EU/dL Ur Leukocyte Esterase NEGATIVE (NEGATIVE) COVID-19 (GRACE) (NEGATIVE) 11/14/19 11/14/19 11/15/19 Range/Units 13:30 18:06 00:14 WBC (4.0-11.0) K/uL RBC (4.30-5.90) M/uL Hgb (12.0-16.0) g/dL Hct (36.0-46.0) % MCV (80.0-98.0) fL MCH (27.0-32.0) pg MCHC (31.0-37.0) g/dL RDW Std Deviation (28.0-62.0) fl RDW Coeff of Tai (11.0-15.0) % Plt Count (150-400) K/uL MPV (7.40-12.00) fL Neut % (Auto) (48.0-80.0) % Lymph % (Auto) (16.0-40.0) % [place] % (Auto) (0.0-15.0) % Eos % (Auto) (0.0-7.0) % Baso % (Auto) (0.0-1.5) % Neut # (Auto) (1.4-5.7) K/uL Lymph # (Auto) (0.6-2.4) K/uL [place] # (Auto) (0.0-0.8) K/uL Eos # (Auto) (0.0-0.7) K/uL Baso # (Auto) (0.0-0.1) K/uL Nucleated RBC % /100WBC Nucleated RBCs # K/uL Sodium (136-145) mmol/L Potassium (3.5-5.1) mmol/L Chloride (98-107) mmol/L Carbon Dioxide (21.0-32.0) mmol/L BUN (7.0-18.0) mg/dL Creatinine (0.6-1.0) mg/dL Est Cr Clr Drug Dosing mL/min Estimated GFR (MDRD) ml/min Glucose (74-106) mg/dL Calcium (8.5-10.1) mg/dL Magnesium (1.8-2.4) mg/dL Troponin I < 0.050 < 0.050 (0.000-0.056) ng/mL Triglycerides (0-200) mg/dL Cholesterol (50-200) mg/dL LDL Cholesterol, Calc (60-180) mg/dL VLDL Cholesterol (5-55) mg/dL HDL Cholesterol (40-60) mg/dL Cholesterol/HDL Ratio (3.3-6.0) Urine Color Urine Appearance Urine pH (5.0-8.0) Ur Specific [place] (1.001-1.035) Urine Protein (NEGATIVE) mg/dL Urine Glucose (UA) (NEGATIVE) mg/dL Urine Ketones (NEGATIVE) mg/dL Urine Occult Blood (NEGATIVE) Urine Nitrite (NEGATIVE) Urine Bilirubin (NEGATIVE) Urine Urobilinogen (<2.0) EU/dL Ur Leukocyte Esterase (NEGATIVE) COVID-19 (GRACE) NEGATIVE (NEGATIVE) 11/15/19 11/15/19 Range/Units 05:30 05:30 WBC 6.70 (4.0-11.0) K/uL RBC 4.81 (4.30-5.90) M/uL Hgb 14.4 (12.0-16.0) g/dL Hct 43.5 (36.0-46.0) % MCV 90.4 (80.0-98.0) fL MCH 29.9 (27.0-32.0) pg MCHC 33.1 (31.0-37.0) g/dL RDW Std Deviation 42.4 (28.0-62.0) fl RDW Coeff of Tai 13 (11.0-15.0) % Plt Count 196 (150-400) K/uL MPV 11.70 (7.40-12.00) fL Neut % (Auto) 52.5 (48.0-80.0) % Lymph % (Auto) 38.5 (16.0-40.0) % [place] % (Auto) 7.2 (0.0-15.0) % Eos % (Auto) 1.2 (0.0-7.0) % Baso % (Auto) 0.6 (0.0-1.5) % Neut # (Auto) 3.5 (1.4-5.7) K/uL Lymph # (Auto) 2.6 H (0.6-2.4) K/uL [place] # (Auto) 0.5 (0.0-0.8) K/uL Eos # (Auto) 0.1 (0.0-0.7) K/uL Baso # (Auto) 0.0 (0.0-0.1) K/uL Nucleated RBC % 0.0 /100WBC Nucleated RBCs # 0 K/uL Sodium 138 (136-145) mmol/L Potassium 4.1 (3.5-5.1) mmol/L Chloride 102 (98-107) mmol/L Carbon Dioxide 25.3 (21.0-32.0) mmol/L BUN 29 H (7.0-18.0) mg/dL Creatinine 1.4 H (0.6-1.0) mg/dL Est Cr Clr Drug Dosing 37.00 mL/min Estimated GFR (MDRD) 37.6 ml/min Glucose 128 H (74-106) mg/dL Calcium 8.7 (8.5-10.1) mg/dL Magnesium 2.4 (1.8-2.4) mg/dL Troponin I (0.000-0.056) ng/mL Triglycerides (0-200) mg/dL Cholesterol (50-200) mg/dL LDL Cholesterol, Calc (60-180) mg/dL VLDL Cholesterol (5-55) mg/dL HDL Cholesterol (40-60) mg/dL Cholesterol/HDL Ratio (3.3-6.0) Urine Color Urine Appearance Urine pH (5.0-8.0) Ur Specific [place] (1.001-1.035) Urine Protein (NEGATIVE) mg/dL Urine Glucose (UA) (NEGATIVE) mg/dL Urine Ketones (NEGATIVE) mg/dL Urine Occult Blood (NEGATIVE) Urine Nitrite (NEGATIVE) Urine Bilirubin (NEGATIVE) Urine Urobilinogen (<2.0) EU/dL Ur Leukocyte Esterase (NEGATIVE) COVID-19 (GRACE) (NEGATIVE) Med Orders - Current: Current Medications Acetaminophen (Tylenol) 650 mg PO Q4H PRN PRN Reason: Pain (Mild 1-3)/fever Albuterol/Ipratropium (Duoneb 3.0-0.5 Mg/3 Ml) 3 ml NEB Q4HRRT PRN PRN Reason: Shortness Of Breath/wheezing Docusate Sodium (Colace) 100 mg PO BID PRN PRN Reason: Constipation Enoxaparin Sodium (Lovenox) 40 mg SUBCUT Q24H [facility] Last Admin: 11/14/19 15:58 Dose: Not Given Documented by: Lidocaine (Lidoderm 5%) 700 mg TRDERM BEDTIME [facility] Last Admin: 11/14/19 20:54 Dose: 700 mg Documented by: Magnesium Oxide (Magnesium Oxide) 400 mg PO BEDTIME [facility] Last Admin: 11/14/19 20:56 Dose: 400 mg Documented by: Montelukast Sodium (Singulair) 10 mg PO BEDTIME [facility] Last Admin: 11/14/19 20:55 Dose: 10 mg Documented by: Levothyroxine 0.137 (Mg Own Med) 0 each PO ACBREAKFAST [facility] Last Admin: 11/15/19 07:19 Dose: 1 each Documented by: Ondansetron HCl (Zofran) 4 mg IVPUSH Q4H PRN PRN Reason: Nausea Pure Pg Fish Oil 2, (000 Mg) 1 each PO BEDTIME [facility] Last Admin: 11/14/19 20:54 Dose: Not Given Documented by: Rhmd Coq10 1 Tab 1 each PO DAILY [facility] Last Admin: 11/15/19 08:29 Dose: Not Given Documented by: Pregabalin (Lyrica) 25 mg PO TIDPC [facility] Last Admin: 11/15/19 08:27 Dose: 25 mg Documented by: Sodium Chloride (Saline Flush) 2.5 ml FLUSH ASDIRECTED PRN PRN Reason: Keep Vein Open Tramadol HCl (Ultram) 50 mg PO Q6H PRN PRN Reason: Pain Last Admin: 11/14/19 20:55 Dose: 50 mg Documented by: Discontinued Medications Furosemide (Lasix) 40 mg IVPUSH NOW ONE Stop: 11/14/19 15:19 Last Admin: 11/14/19 15:58 Dose: 40 mg Documented by: Lidocaine (Lidoderm 5%) 700 mg TRDERM BEDTIME DEEPALI Montelukast Sodium (Singulair) 10 mg PO BEDTIME DEEPALI Montelukast Sodium (Singulair) 10 mg PO BEDTIME DEEPALI Levothyroxine Sodium ([Synthroid] 137 Mcg) 1 each PO ACBREAKFAST [facility] Pregabalin 25 Mg Cap 1 each PO TIDPC [facility] Last Admin: 11/14/19 18:47 Dose: 1 each Documented by: Tramadol HCl (Ultram) 50 mg PO Q6H PRN PRN Reason: Pain <Randell Kirby - Last Filed: 11/15/19 23:16> Discharge Summary - Referral to Home Health Primary Care Physician: PCP None - Patient Data Vitals - Most Recent: Last Vital Signs Temp 36.1 C 11/15/19 07:20 Pulse 65 11/15/19 07:20 Resp 17 11/15/19 07:20 BP 131/85 11/15/19 07:20 Pulse Ox 94 L 11/15/19 07:20 I&O - Last 24 hours: Intake & Output 11/15/19 11/15/19 11/16/19 14:59 22:59 06:59 Intake Total 300 Output Total 300 Balance 0 Lab Results - Last 24 hrs: Laboratory Results - last 24 hr 11/15/19 11/15/19 11/15/19 Range/Units 00:14 05:30 05:30 WBC 6.70 (4.0-11.0) K/uL RBC 4.81 (4.30-5.90) M/uL Hgb 14.4 (12.0-16.0) g/dL Hct 43.5 (36.0-46.0) % MCV 90.4 (80.0-98.0) fL MCH 29.9 (27.0-32.0) pg MCHC 33.1 (31.0-37.0) g/dL RDW Std Deviation 42.4 (28.0-62.0) fl RDW Coeff of Tai 13 (11.0-15.0) % Plt Count 196 (150-400) K/uL MPV 11.70 (7.40-12.00) fL Neut % (Auto) 52.5 (48.0-80.0) % Lymph % (Auto) 38.5 (16.0-40.0) % [place] % (Auto) 7.2 (0.0-15.0) % Eos % (Auto) 1.2 (0.0-7.0) % Baso % (Auto) 0.6 (0.0-1.5) % Neut # (Auto) 3.5 (1.4-5.7) K/uL Lymph # (Auto) 2.6 H (0.6-2.4) K/uL [place] # (Auto) 0.5 (0.0-0.8) K/uL Eos # (Auto) 0.1 (0.0-0.7) K/uL Baso # (Auto) 0.0 (0.0-0.1) K/uL Nucleated RBC % 0.0 /100WBC Nucleated RBCs # 0 K/uL Sodium 138 (136-145) mmol/L Potassium 4.1 (3.5-5.1) mmol/L Chloride 102 (98-107) mmol/L Carbon Dioxide 25.3 (21.0-32.0) mmol/L BUN 29 H (7.0-18.0) mg/dL Creatinine 1.4 H (0.6-1.0) mg/dL Est Cr Clr Drug Dosing 37.00 mL/min Estimated GFR (MDRD) 37.6 ml/min Glucose 128 H (74-106) mg/dL Calcium 8.7 (8.5-10.1) mg/dL Magnesium 2.4 (1.8-2.4) mg/dL Troponin I < 0.050 (0.000-0.056) ng/mL Med Orders - Current: Current Medications Discontinued Medications Acetaminophen (Tylenol) 650 mg PO Q4H PRN PRN Reason: Pain (Mild 1-3)/fever Albuterol/Ipratropium (Duoneb 3.0-0.5 Mg/3 Ml) 3 ml NEB Q4HRRT PRN PRN Reason: Shortness Of Breath/wheezing Docusate Sodium (Colace) 100 mg PO BID PRN PRN Reason: Constipation Enoxaparin Sodium (Lovenox) 40 mg SUBCUT Q24H [facility] Last Admin: 11/14/19 15:58 Dose: Not Given Documented by: Furosemide (Lasix) 40 mg IVPUSH NOW ONE Stop: 11/14/19 15:19 Last Admin: 11/14/19 15:58 Dose: 40 mg Documented by: Lidocaine (Lidoderm 5%) 700 mg TRDERM BEDTIME [facility] Lidocaine (Lidoderm 5%) 700 mg TRDERM BEDTIME [facility] Last Admin: 11/14/19 20:54 Dose: 700 mg Documented by: Magnesium Oxide (Magnesium Oxide) 400 mg PO BEDTIME [facility] Last Admin: 11/14/19 20:56 Dose: 400 mg Documented by: Montelukast Sodium (Singulair) 10 mg PO BEDTIME DEEPALI Montelukast Sodium (Singulair) 10 mg PO BEDTIME DEEPALI Montelukast Sodium (Singulair) 10 mg PO BEDTIME [facility] Last Admin: 11/14/19 20:55 Dose: 10 mg Documented by: Levothyroxine 0.137 (Mg Own Med) 0 each PO ACBREAKFAST [facility] Last Admin: 11/15/19 07:19 Dose: 1 each Documented by: Ondansetron HCl (Zofran) 4 mg IVPUSH Q4H PRN PRN Reason: Nausea Levothyroxine Sodium ([Synthroid] 137 Mcg) 1 each PO ACBREAKFAST DEEPALI Pregabalin 25 Mg Cap 1 each PO TIDPC [facility] Last Admin: 11/14/19 18:47 Dose: 1 each Documented by: Pure Pg Fish Oil 2, (000 Mg) 1 each PO BEDTIME [facility] Last Admin: 11/14/19 20:54 Dose: Not Given Documented by: Rhmd Coq10 1 Tab 1 each PO DAILY [facility] Last Admin: 11/15/19 08:29 Dose: Not Given Documented by: Pregabalin (Lyrica) 25 mg PO TIDPC [facility] Last Admin: 11/15/19 12:50 Dose: Not Given Documented by: Sodium Chloride (Saline Flush) 2.5 ml FLUSH ASDIRECTED PRN PRN Reason: Keep Vein Open Tramadol HCl (Ultram) 50 mg PO Q6H PRN PRN Reason: Pain Tramadol HCl (Ultram) 50 mg PO Q6H PRN PRN Reason: Pain Last Admin: 11/14/19 20:55 Dose: 50 mg Documented by: - Free Text/Narrative Note: I have seen and evaluated the patient with the resident. I have discussed findings and treatment plan with the resident. I agree with the assessment and plan outlined in the following note.
--- NOTE | 2019-11-16 14:14 | CR ---
EXAM DATE: 11/14/19 PATIENT'S AGE: 68 Patient: JANENE MEJIA Facility: [facility] : 1950 Study: XRay-Chest -11/14/2019 9:47:55 AM Ordering Physician: Dea JAMES Final Report: Indication: Shortness of breath Technique: Chest 2 views Comparison: None available Findings: Cardiovascular and mediastinum: Heart size and vasculature are normal in caliber and appearance. Lungs and pleural spaces: Lungs are clear. No sign of infiltrate or mass. No sign of pleural effusion. No pneumothorax. Bones and soft tissues: No significant findings. Impression: Negative chest. Dictated by Lul Bell MD @ Nov 14 2019 9:48AM Signed by: Lul Bell MD @11/14/2019 9:51:01 AM (Electronic Signature) Report Signed by Proxy. [facility]
--- NOTE | 2019-11-20 15:05 | ECHO ---
EXAM DATE: 11/14/19 PATIENT'S AGE: 68 The ECHO report has been scanned into [employer] and can be seen in this patient's EMR (Electronic Medical Record) under the REPORTS section. The report has also been scanned into PACS. KAREN
== END 2019-11-15 13:00 | disposition home or self-care (01) ==
LOC: MW.ED 08:50 → MW.MS 13:18
PROVIDERS: ADMIT Internal Medicine; ATTEND Internal Medicine
DX: R07.89 Other chest pain (principal); R06.02 Shortness of breath; R42 Dizziness and giddiness; R60.0 Localized edema; R61 Generalized hyperhidrosis; E03.9 Hypothyroidism, unspecified; F32.9 Major depressive disorder, single episode, unspecified; I48.11 Longstanding persistent atrial fibrillation; G89.29 Other chronic pain; M54.9 Dorsalgia, unspecified; R06.01 Orthopnea; G47.33 Obstructive sleep apnea (adult) (pediatric); E66.9 Obesity, unspecified; I13.0 Hypertensive heart and chronic kidney disease with heart failure and stage 1 through stage 4 chronic kidney disease, or unspecified chronic kidney disease; I50.9 Heart failure, unspecified; N18.9 Chronic kidney disease, unspecified; E78.5 Hyperlipidemia, unspecified; Z20.828 Contact with and (suspected) exposure to other viral communicable diseases; Z91.040 Latex allergy status; Z79.890 Hormone replacement therapy; Z79.899 Other long term (current) drug therapy; Z91.011 Allergy to milk products; Z88.5 Allergy status to narcotic agent; Z88.6 Allergy status to analgesic agent; Z68.35 Body mass index [BMI] 35.0-35.9, adult
CPT/HCPCS: 36415; 71046; 80048; 80053; 80061; 81003; 83735; 83880; 84484; 85025; 93005; 93306; 96374; 99285; A9270; G0378; J1940; U0002

== ENCOUNTER 2019-11-27 07:55 | Emergency (ER) | payer MEDICARE, BC ==
[2019-11-27] MEDS ORDERED: Aspirin 81 MG Tab.Chew PO ONE (08:08)
[2019-11-27] MEDS ORDERED: Ondansetron 4 MG/2 ML SDV IVPUSH ONE (08:08)
[2019-11-27] MEDS ORDERED: Sodium Chloride 0.9% 2.5 ML Syringe FLUSH PRN (08:10)
[2019-11-27] MEDS ORDERED: Sodium Chloride 0.9% 10 ML Syringe FLUSH PRN (08:10)
[2019-11-27] MEDS ORDERED: Magnesium Sulfate/Water 2 GM in Premix Bag 1 BAG IV ONE (08:11)
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
[2019-11-27] MEDS ORDERED: Heparin Sod,Pork In 0.45% Nacl 25,000 UNIT/500 ML IV.SOLN IV SCH (08:45)
[2019-11-27 08:47] LABS: BLOOD UREA NITROGEN,BUN 29 mg/dL (7.0-18.0); CARBON DIOXIDE,CO2 24.7 mmol/L (21.0-32.0); CHLORIDE,CL 103 mmol/L (98-107); GLUCOSE RANDOM 132 mg/dL (74-106); POTASSIUM,K 4.2 mmol/L (3.5-5.1); SODIUM,NA 139 mmol/L (136-145)
[2019-11-27] MEDS ORDERED: Heparin Sodium 5,000 Units/ML Vial IVPUSH ONE (08:48)
--- NOTE | 2019-11-27 09:03 | CR ---
Chest: Portable view of the chest was obtained. Comparison: Prior chest x-ray of 11/14/19. Heart size and mediastinum are normal. Lungs are clear with no acute parenchymal change. Bony structures are grossly intact. Impression: 1. Nothing acute is seen on portable chest x-ray. Diagnostic code #1 This report was dictated in MDT
== END 2019-11-27 09:50 ==
LOC: MW.ED 07:55
DX: I20.0 Unstable angina (principal); I11.0 Hypertensive heart disease with heart failure; I48.91 Unspecified atrial fibrillation; I50.9 Heart failure, unspecified; E03.9 Hypothyroidism, unspecified; F32.9 Major depressive disorder, single episode, unspecified; Z88.6 Allergy status to analgesic agent; Z91.018 Allergy to other foods; Z91.040 Latex allergy status; Z88.8 Allergy status to other drugs, medicaments and biological substances; Z79.899 Other long term (current) drug therapy; Z88.5 Allergy status to narcotic agent; Z79.01 Long term (current) use of anticoagulants
CPT/HCPCS: 36415; 71045; 80053; 83880; 84443; 84484; 85025; 85610; 85730; 93005; 96365; 96367; 96375; 99285; A9270; J1644; J2405; J3475; 99284

== ENCOUNTER 2019-12-04 05:03 | Emergency (ER) | payer MEDICARE, BC ==
[2019-12-04] MEDS ORDERED: Sodium Chloride 0.9% 2.5 ML Syringe FLUSH PRN (05:18)
[2019-12-04] MEDS ORDERED: Sodium Chloride 0.9% 10 ML Syringe FLUSH PRN (05:18)
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
[2019-12-04 05:41] LABS: BLOOD UREA NITROGEN,BUN 26 mg/dL (7.0-18.0); CARBON DIOXIDE,CO2 23.8 mmol/L (21.0-32.0); CHLORIDE,CL 105 mmol/L (98-107); GLUCOSE RANDOM 113 mg/dL (74-106); POTASSIUM,K 4.3 mmol/L (3.5-5.1); SODIUM,NA 138 mmol/L (136-145)
[2019-12-04] MEDS ORDERED: Atropine 1 MG/ML SDV IM ONE (05:50)
[2019-12-04] MEDS ORDERED: Atropine 0.1 MG/ML 10 ML Syringe IVPUSH ONE (05:51)
--- NOTE | 2019-12-04 06:16 | CR ---
INDICATION: Dizzy, bradycardic. TECHNIQUE: Chest 1 view COMPARISON: Chest radiograph 07/12/2017. FINDINGS: No focal consolidation, pleural effusion, or pneumothorax. Mild atelectasis in the left costophrenic angle. Normal heart size and pulmonary vascularity. IMPRESSION: No acute cardiopulmonary findings. Dictated by Gris Lin MD @ Dec 04 2019 6:12AM Signed by Dr. Gris Lin @ Dec 04 2019 6:14AM
== END 2019-12-04 09:57 | disposition home or self-care (01) ==
LOC: MW.ED 05:03
DX: R00.1 Bradycardia, unspecified (principal); I10 Essential (primary) hypertension; I48.91 Unspecified atrial fibrillation; E03.9 Hypothyroidism, unspecified; Z88.5 Allergy status to narcotic agent; Z91.040 Latex allergy status; Z91.011 Allergy to milk products; Z88.8 Allergy status to other drugs, medicaments and biological substances; Z79.899 Other long term (current) drug therapy; Z90.710 Acquired absence of both cervix and uterus
CPT/HCPCS: 36415; 71045; 80053; 83880; 84484; 85025; 96374; 99285; J0461; 99284

== ENCOUNTER 2019-12-12 09:51 | Inpatient (IN) | payer MEDICARE, BC ==
[2019-12-12] MEDS ORDERED: Sodium Chloride 0.9% 2.5 ML Syringe FLUSH PRN (10:04)
[2019-12-12] MEDS ORDERED: Aspirin 81 MG Tab.Chew PO ONE (10:04)
[2019-12-12] MEDS ORDERED: Sodium Chloride 0.9% 10 ML Syringe FLUSH PRN (10:04)
[2019-12-12] MEDS ORDERED: Diltiazem 25 MG/5 ML SDV IVPUSH ONE (10:05)
[2019-12-12] MEDS ORDERED: Diltiazem 125 MG in Sodium Chloride 0.9% 100 ML IV SCH (10:15)
--- NOTE | 2019-12-12 10:34 | CR ---
Chest: Portable view of the chest was obtained. Comparison: Prior chest x-ray of 12/04/19. Heart size and mediastinum are normal. Lungs are clear with no acute parenchymal change. Bony structures are grossly intact. Impression: 1. Nothing acute is identified on portable chest x-ray. Diagnostic code #1 This report was dictated in MDT
[2019-12-12 11:24] LABS: BLOOD UREA NITROGEN,BUN 19 mg/dL (7.0-18.0); CARBON DIOXIDE,CO2 25.5 mmol/L (21.0-32.0); CHLORIDE,CL 103 mmol/L (98-107); GLUCOSE RANDOM 132 mg/dL (74-106); POTASSIUM,K 3.7 mmol/L (3.5-5.1); SODIUM,NA 140 mmol/L (136-145)
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
[2019-12-12] MEDS ORDERED: Albuterol HFA 18 Gm Inhaler INH PRN (15:03)
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
--- NOTE | 2019-12-12 15:51 | PN ---
THC Physician - Brief Progress [id number]/25/2020 15:39[facility] Sandy Fontanez, JACQUES - RAHN (JENNIFER) - CLARITZA JANENE BERNALDate of Service 12/12/2019 15:39HPI/Events of Note eICU admission [id number] female with past history of A. fib who presented to the hospit al with chest pain and palpitations. Patient mentions she woke up feeling a fast racing heart with a ssociated chest pain, shortness of breath, lightheadedness and presyncope. Patient mentions 1 week p rior she was cardioverted and placed on 12.5 mg of Lopressor as higher escalating doses caused bradyc ardia at that time. On arrival to the ED patient was noted to be tachycardic in the 90s with normal blood pressure. Patient was given Cardizem bolus and started on Cardizem gtt. with improvement of he r heart rate to the 70-90 range. Initial lab work-up revealed NATALY, potassium 3.7, low TSH and normal troponins. Patient was admitted to the ICU for closer monitoring.Patient able to converse at [facility] e team in complete sentences and does not appear to be in acute distress at this time.Vital signs rev iewed. HR 76Labs/EMR reviewedA. fib with RVR-Recommend transitioning to PO AV clair blockers at this time as HR remains controlled-Recommend continuing anticoagulation-Recommend replacing electrolytes to keep MG > 2 and K > 4-If no recent 2D echo has been done we will recommend performing it at this t raudel.-Recommend obtaining free T4 and T3 as TSH is slightly low. If patient continues to have chest p ain recommend repeating troponin and if elevated EKG at that time.-COVID-19 negativeDVT prophy-antico agulatedGI prophy-diet orderedThank you for allowing us to participate in the care of this patient.In terventions Major-Arrhythmia - evaluation and management
[2019-12-12] MEDS ORDERED: traMADol 50 MG Tab PO PRN (20:50)
[2019-12-12] MEDS ORDERED: Montelukast 10 MG Tab PO SCH (21:00)
[2019-12-12] MEDS: Apixaban 5 MG Tab PO SCH (21:06)
[2019-12-12] MEDS: Metoprolol Succinate 25 MG Tab.ER PO SCH (21:08)
[2019-12-12] MEDS ORDERED: Diltiazem 25 MG/5 ML SDV IVPUSH PRN (22:19)
[2019-12-13] MEDS ORDERED: Melatonin 3 MG Tab PO PRN (02:07)
[2019-12-13] MEDS ORDERED: ALPRAZolam 0.25 MG Tab PO PRN (02:08)
--- NOTE | 2019-12-13 03:19 | PN ---
THC Physician - Brief Progress [id number]/26/2020 02:10[facility] Zavala patrizia SandyJACQUES - CLARITZA (JENNIFER) - JANENE ARCHERDate of Service 12/13/2019 02:10HPI/Events of Note Pt concerned about low DBP to 40's earlierA bit anxious and requested med for thisTSH suppres sed slightly? Anxiety/wider pulse pressure due to thyroid disease or AF inaccurate readingTry melaton in to help sleep and prn xanax if not better Echo report to be obtained from recent hospitalizationSe en on videoInterventions Major-Arrhythmia - evaluation and management
[2019-12-13 06:32] LABS: CARBON DIOXIDE,CO2 21.5 mmol/L (21.0-32.0)
[2019-12-13] MEDS ORDERED: Non-Formulary Medication 1 Each (Levothyroxine Sodium [Synthroid] 137 MCG) PO SCH (07:30)
[2019-12-13] MEDS: Apixaban 5 MG Tab PO SCH (08:08)
[2019-12-13] MEDS: Metoprolol Succinate 25 MG Tab.ER PO SCH (08:09)
[2019-12-13] MEDS ORDERED: Lisinopril 10 MG Tab PO SCH (09:00)
[2019-12-13] MEDS ORDERED: Metoprolol Succinate 25 MG Tab.ER PO SCH (09:00)
--- NOTE | 2019-12-13 11:49 | PN ---
THC Physician - Brief Progress [id number]/26/2020 10:20[facility] Sandy Fontanez, JACQUES - MWN (JENNIFER) - MWN JANENE BERNALDate of Service 12/13/2019 10:20HPI/Events of Note eICU Progress [id number] admitted for afib RVR. History obtained primarily from review of EMR.Ca gal exam: Laying in bed. Vitals monitor reviewed.eICU Impression and Recommendations:Atrial fibrilla tion with RVRHyperthyroidismSuggest endocrinology consult for discussion re: work up modalities to ac hieve euthyroidism (ie thionamides, radioiodine, or surgery), as well as discussion re: setting and t iming (inpatient vs outpatient) of definitive therapyUptitration of beta blockers to mitigate hyperad renergic symptoms, with downtitration of diltiazem accordingly, target HR <110bpmTarget Mg >2, K>4TTE if no recent echo performedIf work up of hyperthyroidism is to take place in an inpatient setting, s uggest initiation of work up of etiology with thyrotropin receptor antibodies (TRAb), radioactive iod ine uptake, and thyroidal blood flow on ultrasonographyCan consider initiation of methimazole if beta horacio therapy alone fails to mitigate hyperadrenergic symptomsDVT and GI prophylaxis as appropriat e.Thank you for allowing us to participate in the care of this patient.The above note transcribed wit h the assistance of dictation software. Please excuse any errors.Interventions Major-Arrhythmia - no luation and management
[2019-12-13] MEDS ORDERED: traMADol 50 MG Tab PO PRN (15:03)
[2019-12-13] MEDS ORDERED: Furosemide 20 MG Tab PO PRN (15:03)
--- NOTE | 2019-12-13 18:08 | PCM.DCSUM1 ---
<Juan Elena - Last Filed: 12/13/19 18:22> Discharge Summary - Hospital Course Free Text/Narrative:: 69 yr old female with a PMH of A-Fib presented to the ED with palpitations and dizziness. She was admitted to the ICU for two days for paroxysmal A-Fib with RVR. Patient states that on the day of admission, she woke up early in the morning and felt like her heart was racing. Patient also mentions that she had shortness of breath, chest discomfort, lightheadedness. Patient states that she has had 5 ED visits for similar symptoms in the past 5 weeks. Her most recent hospital visit was 1 week prior in [place] where she was cardioverted which did not resolve her A-Fib. Patient was also started on 12.5mg of metoprolol daily. On admission patient was started on a Cardizem drip which improved her A-Fib and resolved her tachycardia. Cardizem drip was discontinued and patient was re started on 12.5mg metoprolol. Patient also had an elevated T4, 4.2 and low TSH, .23. Patients levothyroxine dose was reduced to 112mcg on discharge and patient was advised to follow up with PCP and have thyroid labs rechecked. Diagnosis: Stroke: No - Discharge Data Discharge Date: 12/13/19 Discharge Disposition: Home, Self-Care 01 Condition: Stable - Referral to Home Health Primary Care Physician: Robi Guajardo MD - Discharge Diagnosis/Problem(s) (1) Atrial fibrillation with rapid ventricular response SNOMED Code(s): 905443608517004 ICD Code: I48.91 - UNSPECIFIED ATRIAL FIBRILLATION Status: Acute - Discharge Plan Prescriptions/Med Rec: Levothyroxine 112 mcg PO ACBREAKFAST #30 tablet Home Medications: Home Meds Lidocaine [Lidocaine 5%] 1 patch TRDERM DAILY PRN 11/14/19 [History] Montelukast [Singulair] 10 mg PO BEDTIME 11/14/19 [History] Pregabalin 25 mg PO TID 11/14/19 [History] traMADol [Ultram] 50 mg PO TID PRN 11/14/19 [History] Apixaban [Eliquis] 5 mg PO BID 30 Days #60 tablet 11/15/19 [Rx] Albuterol [Ventolin HFA] 2 puff INH QID PRN 12/04/19 [History] Diclofenac Sodium [Voltaren] 2 gm TOP BID 12/12/19 [History] Furosemide [Lasix] 20 mg PO DAILY PRN 12/12/19 [History] Metoprolol Succinate [Toprol XL] 12.5 mg PO DAILY 12/12/19 [History] lisinopriL [Lisinopril] 10 mg PO DAILY 12/12/19 [History] Levothyroxine 112 mcg PO ACBREAKFAST #30 tablet 12/13/19 [Rx] traMADol [Ultram] 50 mg PO TID PRN tablet 12/13/19 [Rx] Referrals: Robi Guajardo MD [Primary Care Provider] - 12/19/19 9:45 am (Please arrive 15 minutes before your appointment time.) - Discharge Summary/Plan Comment DC Time >30 min.: No - Review of Systems General: Denies: Fever, Weakness, Fatigue HEENT: Denies: Eye Pain, Headaches, Visual Changes Pulmonary: Denies: Shortness of Breath, Pleuritic Chest Pain, Cough Cardiovascular: Denies: Chest Pain, Palpitations, Dyspnea on Exertion Gastrointestinal: Denies: Abdominal Pain, Constipation, Decreased Appetite Musculoskeletal: Denies: Shoulder Pain, Arm Pain Neurological: Denies: Dizziness, Headache Psychiatric: Denies: Confusion - Patient Data Vitals - Most Recent: Last Vital Signs Temp 98.5 F 12/13/19 16:00 Pulse 91 12/13/19 08:09 Resp 14 12/13/19 16:00 BP 145/97 H 12/13/19 16:00 Pulse Ox 96 12/13/19 16:00 Weight - Most Recent: 107.048 kg I&O - Last 24 hours: Intake & Output 12/13/19 12/13/19 12/13/19 06:59 14:59 22:59 Intake Total 800 800 Output Total 750 750 Balance 50 50 Lab Results - Last 24 hrs: Laboratory Results - last 24 hr 12/12/19 12/12/19 12/12/19 Range/Units 17:18 17:18 22:49 WBC (4.0-11.0) K/uL RBC (4.30-5.90) M/uL Hgb (12.0-16.0) g/dL Hct (36.0-46.0) % MCV (80.0-98.0) fL MCH (27.0-32.0) pg MCHC (31.0-37.0) g/dL RDW Std Deviation (28.0-62.0) fl RDW Coeff of Tai (11.0-15.0) % Plt Count (150-400) K/uL MPV (7.40-12.00) fL Neut % (Auto) (48.0-80.0) % Lymph % (Auto) (16.0-40.0) % [place] % (Auto) (0.0-15.0) % Eos % (Auto) (0.0-7.0) % Baso % (Auto) (0.0-1.5) % Neut # (Auto) (1.4-5.7) K/uL Lymph # (Auto) (0.6-2.4) K/uL [place] # (Auto) (0.0-0.8) K/uL Eos # (Auto) (0.0-0.7) K/uL Baso # (Auto) (0.0-0.1) K/uL Nucleated RBC % /100WBC Nucleated RBCs # K/uL Sodium (136-145) mmol/L Potassium (3.5-5.1) mmol/L Chloride (98-107) mmol/L Carbon Dioxide (21.0-32.0) mmol/L BUN (7.0-18.0) mg/dL Creatinine (0.6-1.0) mg/dL Est Cr Clr Drug Dosing mL/min Estimated GFR (MDRD) ml/min Glucose (74-106) mg/dL Calcium (8.5-10.1) mg/dL Phosphorus (2.6-4.7) mg/dL Magnesium (1.8-2.4) mg/dL Troponin I < 0.050 < 0.050 (0.000-0.056) ng/mL Free T4 4.20 H (0.76-1.46) ng/dL Free T3 2.39 (2.18-3.98) pg/mL 12/13/19 12/13/19 12/13/19 Range/Units 05:58 05:58 05:58 WBC 6.46 (4.0-11.0) K/uL RBC 4.77 (4.30-5.90) M/uL Hgb 14.4 (12.0-16.0) g/dL Hct 42.9 (36.0-46.0) % MCV 89.9 (80.0-98.0) fL MCH 30.2 (27.0-32.0) pg MCHC 33.6 (31.0-37.0) g/dL RDW Std Deviation 40.5 (28.0-62.0) fl RDW Coeff of Tai 12 (11.0-15.0) % Plt Count 220 (150-400) K/uL MPV 11.90 (7.40-12.00) fL Neut % (Auto) 43.1 L (48.0-80.0) % Lymph % (Auto) 47.2 H (16.0-40.0) % [place] % (Auto) 7.7 (0.0-15.0) % Eos % (Auto) 1.4 (0.0-7.0) % Baso % (Auto) 0.6 (0.0-1.5) % Neut # (Auto) 2.8 (1.4-5.7) K/uL Lymph # (Auto) 3.1 H (0.6-2.4) K/uL [place] # (Auto) 0.5 (0.0-0.8) K/uL Eos # (Auto) 0.1 (0.0-0.7) K/uL Baso # (Auto) 0.0 (0.0-0.1) K/uL Nucleated RBC % 0.0 /100WBC Nucleated RBCs # 0 K/uL Sodium 139 (136-145) mmol/L Potassium 4.0 (3.5-5.1) mmol/L Chloride 106 (98-107) mmol/L Carbon Dioxide 21.5 (21.0-32.0) mmol/L BUN 18 (7.0-18.0) mg/dL Creatinine 1.4 H (0.6-1.0) mg/dL Est Cr Clr Drug Dosing 36.50 mL/min Estimated GFR (MDRD) 37.5 ml/min Glucose 123 H (74-106) mg/dL Calcium 9.8 (8.5-10.1) mg/dL Phosphorus 3.9 (2.6-4.7) mg/dL Magnesium 2.3 (1.8-2.4) mg/dL Troponin I (0.000-0.056) ng/mL Free T4 (0.76-1.46) ng/dL Free T3 (2.18-3.98) pg/mL Med Orders - Current: Current Medications Albuterol (Ventolin Hfa) 0 gm INH QID PRN PRN Reason: Wheezing Alprazolam (Xanax) 0.25 mg PO ONETIME PRN PRN Reason: Anxiety Apixaban (Eliquis) 5 mg PO BID [facility] Last Admin: 12/13/19 08:08 Dose: 5 mg Documented by: Diltiazem HCl (Diltiazem) 20 mg IVPUSH Q4H PRN PRN Reason: Tachycardia Furosemide (Lasix) 20 mg PO DAILY PRN PRN Reason: SWELLING Diltiazem HCl 125 mg/ Sodium (Chloride) 125 mls @ 10 mls/hr IV NOW [facility]; Protocol Last Titration: 12/12/19 19:00 Dose: 0 mg/hr, 0 mls/hr Documented by: Levothyroxine Sodium (Levothyroxine) 112 mcg PO ACBREAKFAST [facility] Lisinopril (Prinivil) 10 mg PO DAILY [facility] Last Admin: 12/13/19 08:08 Dose: 10 mg Documented by: Melatonin (Melatonin) 9 mg PO BEDTIME PRN PRN Reason: Insomnia Last Admin: 12/13/19 02:32 Dose: 9 mg Documented by: Metoprolol Succinate (Toprol Xl) 12.5 mg PO BID [facility] Last Admin: 12/13/19 08:09 Dose: 12.5 mg Documented by: Montelukast Sodium (Singulair) 10 mg PO BEDTIME [facility] Last Admin: 12/12/19 21:06 Dose: 10 mg Documented by: Sodium Chloride (Saline Flush) 2.5 ml FLUSH ASDIRECTED PRN PRN Reason: Keep Vein Open Last Admin: 12/12/19 10:14 Dose: 2.5 ml Documented by: Sodium Chloride (Saline Flush) 10 ml FLUSH ASDIRECTED PRN PRN Reason: Keep Vein Open Last Admin: 12/12/19 10:14 Dose: 10 ml Documented by: Tramadol HCl (Ultram) 50 mg PO TID PRN PRN Reason: Pain Last Admin: 12/12/19 21:05 Dose: 50 mg Documented by: Discontinued Medications Aspirin (Aspirin) 324 mg PO ONETIME ONE Stop: 12/12/19 10:05 Last Admin: 12/12/19 10:13 Dose: 324 mg Documented by: Diltiazem HCl (Diltiazem) 20 mg IVPUSH ONETIME ONE Stop: 12/12/19 10:06 Last Admin: 12/12/19 10:13 Dose: 20 mg Documented by: Levothyroxine Sodium 112 mcg/ (Levothyroxine Sodium 25 mcg) 137 mcg PO ACBREAKFAST [facility] Last Admin: 12/13/19 08:26 Dose: 25 mcg Documented by: Metoprolol Succinate (Toprol Xl) 12.5 mg PO DAILY [facility] - Exam General: Reports: Alert, Oriented, Cooperative HEENT: Reports: Pupils Reactive, EOMI Neck: Reports: Trachea Midline Lungs: Reports: Clear to Auscultation, Normal Respiratory Effort Cardiovascular: Reports: Regular Rate, Irregular Rhythm GI/Abdominal Exam: Soft, Non-Tender, No Distention Extremities: Normal Range of Motion, Non-Tender <John,Hooria - Last Filed: 12/14/19 11:07> Discharge Summary - Hospital Course Free Text/Narrative:: I have seen and evaluated the patient and agree with the residents note unless specified in my note - Referral to Home Health Primary Care Physician: Robi Guajardo MD - Patient Data Vitals - Most Recent: Last Vital Signs Temp 36.9 C 12/13/19 16:00 Pulse 91 12/13/19 08:09 Resp 14 12/13/19 16:00 BP 145/97 H 12/13/19 16:00 Pulse Ox 96 12/13/19 16:00 I&O - Last 24 hours: Intake & Output 12/13/19 12/14/19 12/14/19 22:59 06:59 14:59 Intake Total 800 Output Total 750 Balance 50 Med Orders - Current: Current Medications Discontinued Medications Albuterol (Ventolin Hfa) 0 gm INH QID PRN PRN Reason: Wheezing Alprazolam (Xanax) 0.25 mg PO ONETIME PRN PRN Reason: Anxiety Apixaban (Eliquis) 5 mg PO BID [facility] Last Admin: 12/13/19 08:08 Dose: 5 mg Documented by: Aspirin (Aspirin) 324 mg PO ONETIME ONE Stop: 12/12/19 10:05 Last Admin: 12/12/19 10:13 Dose: 324 mg Documented by: Diltiazem HCl (Diltiazem) 20 mg IVPUSH ONETIME ONE Stop: 12/12/19 10:06 Last Admin: 12/12/19 10:13 Dose: 20 mg Documented by: Diltiazem HCl (Diltiazem) 20 mg IVPUSH Q4H PRN PRN Reason: Tachycardia Furosemide (Lasix) 20 mg PO DAILY PRN PRN Reason: SWELLING Diltiazem HCl 125 mg/ Sodium (Chloride) 125 mls @ 10 mls/hr IV NOW [facility]; Protoco l Last Titration: 12/12/19 19:00 Dose: 0 mg/hr, 0 mls/hr Documented by: Levothyroxine Sodium 112 mcg/ (Levothyroxine Sodium 25 mcg) 137 mcg PO ACBREAKFAST [facility] Last Admin: 12/13/19 08:26 Dose: 25 mcg Documented by: Levothyroxine Sodium (Levothyroxine) 112 mcg PO ACBREAKFAST [facility] Lisinopril (Prinivil) 10 mg PO DAILY [facility] Last Admin: 12/13/19 08:08 Dose: 10 mg Documented by: Melatonin (Melatonin) 9 mg PO BEDTIME PRN PRN Reason: Insomnia Last Admin: 12/13/19 02:32 Dose: 9 mg Documented by: Metoprolol Succinate (Toprol Xl) 12.5 mg PO DAILY [facility] Metoprolol Succinate (Toprol Xl) 12.5 mg PO BID [facility] Last Admin: 12/13/19 08:09 Dose: 12.5 mg Documented by: Montelukast Sodium (Singulair) 10 mg PO BEDTIME [facility] Last Admin: 12/12/19 21:06 Dose: 10 mg Documented by: Sodium Chloride (Saline Flush) 2.5 ml FLUSH ASDIRECTED PRN PRN Reason: Keep Vein Open Last Admin: 12/12/19 10:14 Dose: 2.5 ml Documented by: Sodium Chloride (Saline Flush) 10 ml FLUSH ASDIRECTED PRN PRN Reason: Keep Vein Open Last Admin: 12/12/19 10:14 Dose: 10 ml Documented by: Tramadol HCl (Ultram) 50 mg PO TID PRN PRN Reason: Pain Last Admin: 12/12/19 21:05 Dose: 50 mg Documented by:
[2019-12-14] MEDS ORDERED: Levothyroxine 112 MCG Tab PO SCH (07:30)
== END 2019-12-13 18:35 | disposition home or self-care (01) | DRG 309 ==
LOC: MW.ED 09:51 → MW.ICU 11:54
PROVIDERS: ADMIT Internal Medicine; ATTEND Internal Medicine
DX: I48.91 Unspecified atrial fibrillation (principal); R07.9 Chest pain, unspecified; H54.7 Unspecified visual loss; I10 Essential (primary) hypertension; I48.0 Paroxysmal atrial fibrillation; N17.9 Acute kidney failure, unspecified; I50.9 Heart failure, unspecified; E03.9 Hypothyroidism, unspecified; Z90.710 Acquired absence of both cervix and uterus; H26.9 Unspecified cataract; E05.90 Thyrotoxicosis, unspecified without thyrotoxic crisis or storm; Z20.828 Contact with and (suspected) exposure to other viral communicable diseases; I11.0 Hypertensive heart disease with heart failure; Z91.018 Allergy to other foods; Z79.01 Long term (current) use of anticoagulants; M54.9 Dorsalgia, unspecified; G89.29 Other chronic pain; F32.9 Major depressive disorder, single episode, unspecified; Z88.5 Allergy status to narcotic agent; Z91.048 Other nonmedicinal substance allergy status; Z79.899 Other long term (current) drug therapy; Z79.890 Hormone replacement therapy; Z91.040 Latex allergy status; Z91.011 Allergy to milk products
CPT/HCPCS: 36415; 71045; 71045-26; 80048; 80053; 83735; 84100; 84436; 84439; 84443; 84481; 84484; 85025; 85610; 93005; A9270-GY; J3490; J3535-GY; J7050; U0002

== ENCOUNTER 2020-02-09 11:00 | Observation (INO) | payer MEDICARE, BC, OTHER ==
[2020-02-09] MEDS ORDERED: Sodium Chloride 0.9% 1,000 ML IV ONE (11:01)
[2020-02-09] MEDS ORDERED: Aspirin 81 MG Tab.Chew PO ONE (11:01)
--- NOTE | 2020-02-09 11:05 | PCM.SN.2 ---
- Free Text/Narrative Note: 12-Lead ECG Interpretation Acquired: 10:51 AM Rhythm: Atrial fibrillation with rapid ventricular response Rate: 122 bpm [place]: Normal Intervals: Normal Ectopy: None RV Strain: No obvious RV strain pattern. ST Segments/T-Waves: QS complexes in leads III and aVF Acute Ischemic Changes: None apparent. Compared to most recent ECG from 12/12/2019, new QS complexes in lead aVF. Interpretation: No STEMI
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
[2020-02-09] MEDS ORDERED: Magnesium Sulfate (4.06 MEQ/ML) 1 GM/2 ML SDV IV ONE (12:02)
--- NOTE | 2020-02-09 12:08 | PCM.SN.2 ---
- Free Text/Narrative Note: 12-Lead ECG Interpretation #2 Acquired: 11:54 AM Rhythm: Likely atrial flutter Rate: 137 bpm Fowler: Normal Intervals: Normal Ectopy: None RV Strain: No obvious RV strain pattern. ST Segments/T-Waves: QS complexes in lead III Acute Ischemic Changes: None apparent Interpretation: No STEMI
--- NOTE | 2020-02-09 12:10 | CR ---
INDICATION: Chest pain COMPARISON: December 12, 2019 TECHNIQUE: AP portable single view study FINDINGS: TUBES AND LINES: None. HEART AND MEDIASTINUM: The heart size is normal. The mediastinal contour appears normal for patient age. LUNGS AND PLEURAL SPACES: Given low lung volumes, the lungs appear to be clear.There pleural spaces are unremarkable. OSSEOUS STRUCTURES: Age-appropriate appearance. No acute focal finding. IMPRESSION: Given the low lung volumes, the lungs appear to be clear. Dictated by Brandin Callejas MD @ Feb 09 2020 12:08PM Signed by Dr. Brandin Callejas @ Feb 09 2020 12:09PM
[2020-02-09] MEDS ORDERED: Diltiazem 25 MG/5 ML SDV IVPUSH ONE (12:12)
[2020-02-09 12:13] LABS: BLOOD UREA NITROGEN,BUN 25 mg/dL (7.0-18.0); CARBON DIOXIDE,CO2 24.4 mmol/L (21.0-32.0); CHLORIDE,CL 103 mmol/L (98-107); GLUCOSE RANDOM 170 mg/dL (74-106); LIPASE 127 U/L (73-393); POTASSIUM,K 4.1 mmol/L (3.5-5.1); SODIUM,NA 138 mmol/L (136-145)
[2020-02-09] MEDS ORDERED: Magnesium Sulfate/Water 2 GM/50 ML BAG IV ONE (12:15)
--- NOTE | 2020-02-09 14:24 | PCM.SN.2 ---
- Free Text/Narrative Note: 12-Lead ECG Interpretation Acquired: 1:50 PM Rhythm: Atrial flutter Rate: 69 bpm [place]: Normal Intervals: Normal Ectopy: None RV Strain: No obvious RV strain pattern. ST Segments/T-Waves: QS complexes in lead III Acute Ischemic Changes: None apparent Interpretation: No STEMI
[2020-02-09] MEDS ORDERED: Acetaminophen 325 MG Tab PO PRN (14:37)
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
[2020-02-09] MEDS ORDERED: Diltiazem 25 MG/5 ML SDV IVPUSH PRN (14:53)
[2020-02-09] MEDS ORDERED: Furosemide 20 MG Tab PO PRN (16:00)
[2020-02-09] MEDS ORDERED: traMADol 50 MG Tab PO PRN (16:00)
[2020-02-09] MEDS ORDERED: Albuterol HFA 18 Gm Inhaler INH PRN (16:00)
[2020-02-09] MEDS: Pantoprazole 40 MG Tab.CR PO SCH (20:27)
[2020-02-09] MEDS: Metoprolol Tartrate 25 MG Tab PO SCH (20:27)
[2020-02-09] MEDS: Apixaban 5 MG Tab PO SCH (20:28)
[2020-02-09] MEDS ORDERED: Montelukast 10 MG Tab PO SCH (21:00)
[2020-02-09] MEDS ORDERED: Metoprolol Tartrate 25 MG Tab PO SCH (21:00)
[2020-02-09] MEDS: Pregabalin 50 MG Cap PO SCH (21:28)
[2020-02-10] MEDS: Pregabalin 50 MG Cap PO SCH ×2 (06:30→13:51)
[2020-02-10 07:05] LABS: CARBON DIOXIDE,CO2 25.1 mmol/L (21.0-32.0); POTASSIUM,K 4.3 mmol/L (3.5-5.1)
[2020-02-10] MEDS ORDERED: Levothyroxine 112 MCG Tab PO SCH (07:30)
[2020-02-10] MEDS: Pantoprazole 40 MG Tab.CR PO SCH (08:13)
[2020-02-10] MEDS ORDERED: Furosemide 20 MG Tab PO SCH (09:45)
[2020-02-10] MEDS: Apixaban 5 MG Tab PO SCH (09:48)
[2020-02-10] MEDS: Metoprolol Tartrate 25 MG Tab PO SCH (09:51)
--- NOTE | 2020-02-10 12:16 | PCM.PN ---
- General Info Date of Service: 02/10/20 Subjective Update: Reports feeling better this morning. Did not sleep well last night so tired this morning. Denies any palpitations or chest pain currently. - Patient Data Vitals - Most Recent: Last Vital Signs Temp 36.7 C 02/10/20 11:36 Pulse 103 H 02/10/20 11:36 Resp 14 02/10/20 11:36 BP 125/69 02/10/20 11:36 Pulse Ox 95 02/10/20 11:36 Weight - Most Recent: 105.233 kg I&O - Last 24 Hours: Intake & Output 02/09/20 02/10/20 02/10/20 22:59 06:59 14:59 Intake Total 0 350 Output Total 100 400 Balance -100 -50 Lab Results Last 24 Hours: Laboratory Results - last 24 hr 02/09/20 02/09/20 02/09/20 Range/Units 11:00 11:00 11:00 WBC (4.0-11.0) K/uL RBC (4.30-5.90) M/uL Hgb (12.0-16.0) g/dL Hct (36.0-46.0) % MCV (80.0-98.0) fL MCH (27.0-32.0) pg MCHC (31.0-37.0) g/dL RDW Std Deviation (28.0-62.0) fl RDW Coeff of Tai (11.0-15.0) % Plt Count (150-400) K/uL MPV (7.40-12.00) fL Neut % (Auto) (48.0-80.0) % Lymph % (Auto) (16.0-40.0) % Caroline % (Auto) (0.0-15.0) % Eos % (Auto) (0.0-7.0) % Baso % (Auto) (0.0-1.5) % Neut # (Auto) (1.4-5.7) K/uL Lymph # (Auto) (0.6-2.4) K/uL Caroline # (Auto) (0.0-0.8) K/uL Eos # (Auto) (0.0-0.7) K/uL Baso # (Auto) (0.0-0.1) K/uL Nucleated RBC % /100WBC Nucleated RBCs # K/uL INR Sodium 138 (136-145) mmol/L Potassium 4.1 (3.5-5.1) mmol/L Chloride 103 (98-107) mmol/L Carbon Dioxide 24.4 (21.0-32.0) mmol/L BUN 25 H (7.0-18.0) mg/dL Creatinine 1.6 H (0.6-1.0) mg/dL Est Cr Clr Drug Dosing 31.94 mL/min Estimated GFR (MDRD) 32.2 ml/min Glucose 170 H (74-106) mg/dL Calcium 9.6 (8.5-10.1) mg/dL Magnesium 2.5 H (1.8-2.4) mg/dL Total Bilirubin 0.6 (0.2-1.0) mg/dL AST 30 (15-37) IU/L ALT 36 (14-63) IU/L Alkaline Phosphatase 86 (46-116) U/L Troponin I < 0.050 (0.000-0.056) ng/mL Total Protein 7.3 (6.4-8.2) g/dL Albumin 3.7 (3.4-5.0) g/dL Globulin 3.6 (2.6-4.0) g/dL Albumin/Globulin Ratio 1.0 (0.9-1.6) Lipase 127 (73-393) U/L TSH 3rd Generation 0.21 L (0.36-3.74) uIU/mL SARS-CoV-2 RNA (GRACE) (NEGATIVE) 02/09/20 02/09/20 02/09/20 Range/Units 11:22 13:50 17:07 WBC (4.0-11.0) K/uL RBC (4.30-5.90) M/uL Hgb (12.0-16.0) g/dL Hct (36.0-46.0) % MCV (80.0-98.0) fL MCH (27.0-32.0) pg MCHC (31.0-37.0) g/dL RDW Std Deviation (28.0-62.0) fl RDW Coeff of Tai (11.0-15.0) % Plt Count (150-400) K/uL MPV (7.40-12.00) fL Neut % (Auto) (48.0-80.0) % Lymph % (Auto) (16.0-40.0) % Caroline % (Auto) (0.0-15.0) % Eos % (Auto) (0.0-7.0) % Baso % (Auto) (0.0-1.5) % Neut # (Auto) (1.4-5.7) K/uL Lymph # (Auto) (0.6-2.4) K/uL Caroline # (Auto) (0.0-0.8) K/uL Eos # (Auto) (0.0-0.7) K/uL Baso # (Auto) (0.0-0.1) K/uL Nucleated RBC % /100WBC Nucleated RBCs # K/uL INR 1.11 Sodium (136-145) mmol/L Potassium (3.5-5.1) mmol/L Chloride (98-107) mmol/L Carbon Dioxide (21.0-32.0) mmol/L BUN (7.0-18.0) mg/dL Creatinine (0.6-1.0) mg/dL Est Cr Clr Drug Dosing mL/min Estimated GFR (MDRD) ml/min Glucose (74-106) mg/dL Calcium (8.5-10.1) mg/dL Magnesium (1.8-2.4) mg/dL Total Bilirubin (0.2-1.0) mg/dL AST (15-37) IU/L ALT (14-63) IU/L Alkaline Phosphatase (46-116) U/L Troponin I < 0.050 (0.000-0.056) ng/mL Total Protein (6.4-8.2) g/dL Albumin (3.4-5.0) g/dL Globulin (2.6-4.0) g/dL Albumin/Globulin Ratio (0.9-1.6) Lipase (73-393) U/L TSH 3rd Generation (0.36-3.74) uIU/mL SARS-CoV-2 RNA (GRACE) NEGATIVE (NEGATIVE) 02/09/20 02/10/20 02/10/20 Range/Units 22:55 05:45 05:45 WBC 5.54 (4.0-11.0) K/uL RBC 4.54 (4.30-5.90) M/uL Hgb 13.2 (12.0-16.0) g/dL Hct 40.9 (36.0-46.0) % MCV 90.1 (80.0-98.0) fL MCH 29.1 (27.0-32.0) pg MCHC 32.3 (31.0-37.0) g/dL RDW Std Deviation 44.8 (28.0-62.0) fl RDW Coeff of Tai 14 (11.0-15.0) % Plt Count 189 (150-400) K/uL MPV 12.20 H (7.40-12.00) fL Neut % (Auto) 40.5 L (48.0-80.0) % Lymph % (Auto) 49.3 H (16.0-40.0) % Caroline % (Auto) 8.1 (0.0-15.0) % Eos % (Auto) 1.4 (0.0-7.0) % Baso % (Auto) 0.7 (0.0-1.5) % Neut # (Auto) 2.2 (1.4-5.7) K/uL Lymph # (Auto) 2.7 H (0.6-2.4) K/uL Caroline # (Auto) 0.5 (0.0-0.8) K/uL Eos # (Auto) 0.1 (0.0-0.7) K/uL Baso # (Auto) 0.0 (0.0-0.1) K/uL Nucleated RBC % 0.0 /100WBC Nucleated RBCs # 0 K/uL INR Sodium 140 (136-145) mmol/L Potassium 4.3 (3.5-5.1) mmol/L Chloride 106 (98-107) mmol/L Carbon Dioxide 25.1 (21.0-32.0) mmol/L BUN 24 H (7.0-18.0) mg/dL Creatinine 1.5 H (0.6-1.0) mg/dL Est Cr Clr Drug Dosing 34.07 mL/min Estimated GFR (MDRD) 34.6 ml/min Glucose 114 H (74-106) mg/dL Calcium 9.0 (8.5-10.1) mg/dL Magnesium (1.8-2.4) mg/dL Total Bilirubin 0.6 (0.2-1.0) mg/dL AST 21 (15-37) IU/L ALT 32 (14-63) IU/L Alkaline Phosphatase 73 (46-116) U/L Troponin I < 0.050 (0.000-0.056) ng/mL Total Protein 6.2 L (6.4-8.2) g/dL Albumin 3.2 L (3.4-5.0) g/dL Globulin 3.0 (2.6-4.0) g/dL Albumin/Globulin Ratio 1.1 (0.9-1.6) Lipase (73-393) U/L TSH 3rd Generation (0.36-3.74) uIU/mL SARS-CoV-2 RNA (GRACE) (NEGATIVE) Med Orders - Current: Current Medications Acetaminophen (Tylenol) 650 mg PO Q4H PRN PRN Reason: Pain (Mild 1-3)/fever Albuterol (Ventolin Hfa) 0 gm INH Q6HRRT PRN PRN Reason: Wheezing Apixaban (Eliquis) 5 mg PO BID [facility] Last Admin: 02/10/20 09:48 Dose: 5 mg Documented by: Diltiazem HCl (Diltiazem) 10 mg IVPUSH Q4H PRN PRN Reason: Other Furosemide (Lasix) 20 mg PO DAILY [facility] Last Admin: 02/10/20 09:48 Dose: 20 mg Documented by: Levothyroxine Sodium (Levothyroxine) 112 mcg PO ACBREAKFAST [facility] Last Admin: 02/10/20 07:21 Dose: 112 mcg Documented by: Metoprolol Tartrate (Lopressor) 25 mg PO TID [facility] Montelukast Sodium (Singulair) 10 mg PO BEDTIME [facility] Last Admin: 02/09/20 20:27 Dose: 10 mg Documented by: Pantoprazole Sodium (Protonix) 40 mg PO BID [facility] Last Admin: 02/10/20 08:13 Dose: Not Given Documented by: Pregabalin (Lyrica) 100 mg PO TID [facility] Last Admin: 02/10/20 06:30 Dose: Not Given Documented by: Tramadol HCl (Ultram) 100 mg PO TID PRN PRN Reason: Pain Last Admin: 02/09/20 21:24 Dose: 100 mg Documented by: Discontinued Medications Aspirin (Aspirin) 324 mg PO ONETIME ONE Stop: 02/09/20 11:02 Last Admin: 02/09/20 11:27 Dose: 324 mg Documented by: Diltiazem HCl (Diltiazem) 10 mg IVPUSH ONETIME ONE Stop: 02/09/20 12:13 Last Admin: 02/09/20 12:39 Dose: 10 mg Documented by: Furosemide (Lasix) 20 mg PO DAILY PRN PRN Reason: SWELLING Sodium Chloride (Normal Saline) 1,000 mls @ 999 mls/hr IV BOLUS ONE Stop: 02/09/20 12:01 Last Admin: 02/09/20 11:28 Dose: 999 mls/hr Documented by: Magnesium Sulfate (Magnesium Sulfate In Water Premix) 2 gm in 50 mls @ 50 mls/hr IV ONETIME ONE Stop: 02/09/20 13:14 Last Admin: 02/09/20 12:39 Dose: 50 mls/hr Documented by: Metoprolol Tartrate (Lopressor) 12.5 mg PO Q12HR [facility] Metoprolol Tartrate (Lopressor) 25 mg PO Q12H [facility] Last Admin: 02/10/20 09:51 Dose: 25 mg Documented by: - Exam General: Alert, Oriented, Cooperative, No Acute Distress Lungs: Clear to Auscultation, Normal Respiratory Effort Cardiovascular: Regular Rate, Irregular Rhythm GI/Abdominal Exam: Normal Bowel Sounds, Soft, Non-Tender, No Distention Sepsis Event Note - Evaluation Sepsis Screening Result: No Definite Risk - Focused Exam Vital Signs: Vital Signs Temp Pulse Pulse Resp BP BP Pulse Ox 02/10/20 11:36 36.7 C 103 H 14 125/69 95 02/10/20 09:51 80 115/67 02/10/20 07:30 36.3 C 82 16 112/71 94 L 02/10/20 04:00 36.3 C 84 16 121/74 97 - Problem List & Annotations (1) Atrial fibrillation with rapid ventricular response SNOMED Code(s): 354732674273061 Code(s): I48.91 - UNSPECIFIED ATRIAL FIBRILLATION Status: Acute Current Visit: Yes (2) CKD (chronic kidney disease) SNOMED Code(s): 528456580 Code(s): N18.9 - CHRONIC KIDNEY DISEASE, UNSPECIFIED Status: Acute Current Visit: Yes (3) Chest pain, rule out acute myocardial infarction SNOMED Code(s): 67399334 Code(s): R07.9 - CHEST PAIN, UNSPECIFIED Status: Acute Current Visit: Yes (4) Hypothyroid SNOMED Code(s): 63516993 Code(s): E03.9 - HYPOTHYROIDISM, UNSPECIFIED Status: Chronic Current Visit: No - Problem List Review Problem List Initiated/Reviewed/Updated: Yes - My Orders Last 24 Hours: My Active Orders 02/09/20 14:37 Oxygen Therapy [RC] PRN Up ad Qi [RC] ASDIRECTED VTE/DVT Education [RC] DAILY Vital Signs [RC] Q4H Acetaminophen [TylenoL] 650 mg PO Q4H PRN Sequential Compression Device [OM.PC] Per Unit Routine Resuscitation Status Routine 02/09/20 14:38 Antiembolic Devices [RC] PER UNIT ROUTINE Telemetry Monitoring [Cardiac Monitoring] [RC] . DIRECTED 02/09/20 14:53 Diltiazem 10 mg IVPUSH Q4H PRN 02/09/20 Dinner Fluid Restriction [DIET] Low Salt [Sodium Restricted Diet] [DIET] Albuterol [Ventolin HFA] 0 gm INH Q6HRRT PRN traMADol [Ultram] 100 mg PO TID PRN 02/09/20 16:01 RT Post Treatment Assessment [RC] Click to Edit RT Pre-Treatment Assessment [RC] Click to Edit 02/09/20 21:00 Apixaban [Eliquis] 5 mg PO BID Montelukast [Singulair] 10 mg PO BEDTIME Pantoprazole [ProTONIX] 40 mg PO BID 02/09/20 22:00 Pregabalin [Lyrica] 100 mg PO TID 02/10/20 07:30 Levothyroxine 112 mcg PO ACBREAKFAST 02/10/20 09:45 Furosemide [Lasix] 20 mg PO DAILY 02/10/20 14:00 Metoprolol Tartrate [Lopressor] 25 mg PO TID - Plan Plan:: Assessment and Plan. 1. Chest pain, ACS rule out: - Denies chest pain currently. Troponins trended and were negative. 2. Atrial fibrillation: - A-fib is currently rate controlled. Per telemetry, heart rate 60-100's. Continue Eliquis and will increase metoprolol to 25 mg TID. Will continue to monitor today. 3. Acute on chronic kidney disease, improved: - Will hold home lisinopril for now. 4. Hypothyroidism: - TSH level low on admission. Will decrease home dose of levothyroxine to 112 mcg qd. Will need to follow-up as outpatient with PCP for further monitoring and titration. 5. DVT prophylaxis: - Continue home dose of Eliquis. 6. Past medical history of CHF, HTN and MTHFR gene mutation: - Continue home medications.
[2020-02-10] MEDS ORDERED: Sodium Chloride 0.9% 500 ML IV ONE (12:54)
[2020-02-10] MEDS ORDERED: Metoprolol Tartrate 25 MG Tab PO SCH (14:00)
--- NOTE | 2020-02-10 17:07 | PCM.DCSUM1 ---
<Flakito Lawrence - Last Filed: 02/11/20 15:11> Discharge Summary - Hospital Course Free Text/Narrative:: 69-year-old female admitted for chest pain and a-fib with RVR. She has a PMH of CHF, HTN and MTHFR gene mutation. Patient recently had cardiac ablation procedure a few weeks ago in [place], [place]. Troponins were trended and were negative. Patient's received IV diltiazem and her a-fib remained rate controlled thereafter. No reported events on telemetry overnight. Her TSH level was found t o be low so her dose of levothyroxine was decreased to 112 mcg qd and will require further monitoring and titration by her PCP on discharge. Her dose of metoprolol was also increased to 25 mg TID. Advised patient to follow-up with PCP and fur repair inspector on discharge. - Discharge Data Discharge Date: 02/10/20 Discharge Disposition: Home, Self-Care 01 Condition: Good - Referral to Home Health Primary Care Physician: PCP None - Discharge Diagnosis/Problem(s) (1) Atrial fibrillation with rapid ventricular response SNOMED Code(s): 524759917659116 ICD Code: I48.91 - UNSPECIFIED ATRIAL FIBRILLATION Status: Acute (2) CKD (chronic kidney disease) SNOMED Code(s): 081236357 ICD Code: N18.9 - CHRONIC KIDNEY DISEASE, UNSPECIFIED Status: Acute (3) Chest pain, rule out acute myocardial infarction SNOMED Code(s): 72836160 ICD Code: R07.9 - CHEST PAIN, UNSPECIFIED Status: Acute (4) Hypothyroid SNOMED Code(s): 64046236 ICD Code: E03.9 - HYPOTHYROIDISM, UNSPECIFIED Status: Chronic - Patient Instructions Diet: Usual Diet as Tolerated Activity: As Tolerated Notify Provider of: Fever, Increased Pain, Swelling and Redness, Drainage, Nausea and/or Vomiting - Discharge Plan *PRESCRIPTION DRUG MONITORING PROGRAM REVIEWED*: Not Applicable *COPY OF PRESCRIPTION DRUG MONITORING REPORT IN PATIENT RENU: Not Applicable Prescriptions/Med Rec: Levothyroxine 112 mcg PO ACBREAKFAST 30 Days #30 tablet Home Medications: Home Meds Montelukast [Singulair] 10 mg PO BEDTIME 11/14/19 [History] Pregabalin 100 mg PO TID 11/14/19 [History] Apixaban [Eliquis] 5 mg PO BID 30 Days #60 tablet 11/15/19 [Rx] Albuterol [Ventolin HFA] 2 puff INH QID PRN 12/04/19 [History] Diclofenac Sodium [Voltaren] 2 gm TOP BID 12/12/19 [History] Furosemide [Lasix] 20 mg PO DAILY PRN 12/12/19 [History] lisinopriL [Lisinopril] 5 mg PO DAILY 12/12/19 [History] Amoxicillin [Amoxil] 875 mg PO Q12HR 02/09/20 [History] Fluticasone Propionate [Flonase Allergy Relief] 1 - 2 spray NASBOTH DAILY 02/09/20 [History] Pantoprazole Sodium [Protonix] 40 mg PO BID 02/09/20 [History] traMADol [Ultram] 100 mg PO TID PRN 02/09/20 [History] Levothyroxine 112 mcg PO ACBREAKFAST 30 Days #30 tablet 02/10/20 [Rx] Metoprolol Tartrate [Lopressor] 25 mg PO TID #0 02/10/20 [Rx] Patient Handouts: Levothyroxine tablets, Nonspecific Chest Pain, Adult, [id number] Referrals: Robi Guajardo MD [Ordering Only Provider] - (A follow-up appointment could not be made for you due to the weekend. You are highly encouraged to contact your primary care provider on Wednesday at the number listed here to schedule a hospital follow up appointment.) - Discharge Summary/Plan Comment DC Time >30 min.: No - Patient Data Vitals - Most Recent: Last Vital Signs Temp 36.8 C 02/10/20 16:54 Pulse 104 H 02/10/20 16:54 Resp 12 02/10/20 16:54 BP 110/73 02/10/20 16:54 Pulse Ox 96 02/10/20 16:54 Orthostatic Blood Pressure [ 109/72 Standing] Orthostatic Blood Pressure [ 110/71 Sitting] Orthostatic Blood Pressure [ 115/59 Supine] Weight - Most Recent: 105.233 kg I&O - Last 24 hours: Intake & Output 02/10/20 02/10/20 02/10/20 06:59 14:59 22:59 Intake Total 350 1450 Output Total 400 500 Balance -50 950 Lab Results - Last 24 hrs: Laboratory Results - last 24 hr 02/09/20 02/09/20 02/10/20 Range/Units 17:07 22:55 05:45 WBC 5.54 (4.0-11.0) K/uL RBC 4.54 (4.30-5.90) M/uL Hgb 13.2 (12.0-16.0) g/dL Hct 40.9 (36.0-46.0) % MCV 90.1 (80.0-98.0) fL MCH 29.1 (27.0-32.0) pg MCHC 32.3 (31.0-37.0) g/dL RDW Std Deviation 44.8 (28.0-62.0) fl RDW Coeff of Tai 14 (11.0-15.0) % Plt Count 189 (150-400) K/uL MPV 12.20 H (7.40-12.00) fL Neut % (Auto) 40.5 L (48.0-80.0) % Lymph % (Auto) 49.3 H (16.0-40.0) % [place] % (Auto) 8.1 (0.0-15.0) % Eos % (Auto) 1.4 (0.0-7.0) % Baso % (Auto) 0.7 (0.0-1.5) % Neut # (Auto) 2.2 (1.4-5.7) K/uL Lymph # (Auto) 2.7 H (0.6-2.4) K/uL [place] # (Auto) 0.5 (0.0-0.8) K/uL Eos # (Auto) 0.1 (0.0-0.7) K/uL Baso # (Auto) 0.0 (0.0-0.1) K/uL Nucleated RBC % 0.0 /100WBC Nucleated RBCs # 0 K/uL Sodium (136-145) mmol/L Potassium (3.5-5.1) mmol/L Chloride (98-107) mmol/L Carbon Dioxide (21.0-32.0) mmol/L BUN (7.0-18.0) mg/dL Creatinine (0.6-1.0) mg/dL Est Cr Clr Drug Dosing mL/min Estimated GFR (MDRD) ml/min Glucose (74-106) mg/dL Calcium (8.5-10.1) mg/dL Total Bilirubin (0.2-1.0) mg/dL AST (15-37) IU/L ALT (14-63) IU/L Alkaline Phosphatase (46-116) U/L Troponin I < 0.050 < 0.050 (0.000-0.056) ng/mL Total Protein (6.4-8.2) g/dL Albumin (3.4-5.0) g/dL Globulin (2.6-4.0) g/dL Albumin/Globulin Ratio (0.9-1.6) 02/10/20 Range/Units 05:45 WBC (4.0-11.0) K/uL RBC (4.30-5.90) M/uL Hgb (12.0-16.0) g/dL Hct (36.0-46.0) % MCV (80.0-98.0) fL MCH (27.0-32.0) pg MCHC (31.0-37.0) g/dL RDW Std Deviation (28.0-62.0) fl RDW Coeff of Tai (11.0-15.0) % Plt Count (150-400) K/uL MPV (7.40-12.00) fL Neut % (Auto) (48.0-80.0) % Lymph % (Auto) (16.0-40.0) % [place] % (Auto) (0.0-15.0) % Eos % (Auto) (0.0-7.0) % Baso % (Auto) (0.0-1.5) % Neut # (Auto) (1.4-5.7) K/uL Lymph # (Auto) (0.6-2.4) K/uL [place] # (Auto) (0.0-0.8) K/uL Eos # (Auto) (0.0-0.7) K/uL Baso # (Auto) (0.0-0.1) K/uL Nucleated RBC % /100WBC Nucleated RBCs # K/uL Sodium 140 (136-145) mmol/L Potassium 4.3 (3.5-5.1) mmol/L Chloride 106 (98-107) mmol/L Carbon Dioxide 25.1 (21.0-32.0) mmol/L BUN 24 H (7.0-18.0) mg/dL Creatinine 1.5 H (0.6-1.0) mg/dL Est Cr Clr Drug Dosing 34.07 mL/min Estimated GFR (MDRD) 34.6 ml/min Glucose 114 H (74-106) mg/dL Calcium 9.0 (8.5-10.1) mg/dL Total Bilirubin 0.6 (0.2-1.0) mg/dL AST 21 (15-37) IU/L ALT 32 (14-63) IU/L Alkaline Phosphatase 73 (46-116) U/L Troponin I (0.000-0.056) ng/mL Total Protein 6.2 L (6.4-8.2) g/dL Albumin 3.2 L (3.4-5.0) g/dL Globulin 3.0 (2.6-4.0) g/dL Albumin/Globulin Ratio 1.1 (0.9-1.6) Med Orders - Current: Current Medications Acetaminophen (Tylenol) 650 mg PO Q4H PRN PRN Reason: Pain (Mild 1-3)/fever Albuterol (Ventolin Hfa) 0 gm INH Q6HRRT PRN PRN Reason: Wheezing Apixaban (Eliquis) 5 mg PO BID [facility] Last Admin: 02/10/20 09:48 Dose: 5 mg Documented by: Diltiazem HCl (Diltiazem) 10 mg IVPUSH Q4H PRN PRN Reason: Other Furosemide (Lasix) 20 mg PO DAILY [facility] Last Admin: 02/10/20 09:48 Dose: 20 mg Documented by: Levothyroxine Sodium (Levothyroxine) 112 mcg PO ACBREAKFAST [facility] Last Admin: 02/10/20 07:21 Dose: 112 mcg Documented by: Metoprolol Tartrate (Lopressor) 25 mg PO TID [facility] Last Admin: 02/10/20 13:51 Dose: 25 mg Documented by: Montelukast Sodium (Singulair) 10 mg PO BEDTIME [facility] Last Admin: 02/09/20 20:27 Dose: 10 mg Documented by: Pantoprazole Sodium (Protonix) 40 mg PO BID [facility] Last Admin: 02/10/20 08:13 Dose: Not Given Documented by: Pregabalin (Lyrica) 100 mg PO TID [facility] Last Admin: 02/10/20 13:51 Dose: 100 mg Documented by: Tramadol HCl (Ultram) 100 mg PO TID PRN PRN Reason: Pain Last Admin: 02/09/20 21:24 Dose: 100 mg Documented by: Discontinued Medications Aspirin (Aspirin) 324 mg PO ONETIME ONE Stop: 02/09/20 11:02 Last Admin: 02/09/20 11:27 Dose: 324 mg Documented by: Diltiazem HCl (Diltiazem) 10 mg IVPUSH ONETIME ONE Stop: 02/09/20 12:13 Last Admin: 02/09/20 12:39 Dose: 10 mg Documented by: Furosemide (Lasix) 20 mg PO DAILY PRN PRN Reason: SWELLING Sodium Chloride (Normal Saline) 1,000 mls @ 999 mls/hr IV BOLUS ONE Stop: 02/09/20 12:01 Last Admin: 02/09/20 11:28 Dose: 999 mls/hr Documented by: Magnesium Sulfate (Magnesium Sulfate In Water Premix) 2 gm in 50 mls @ 50 mls/hr IV ONETIME ONE Stop: 02/09/20 13:14 Last Admin: 02/09/20 12:39 Dose: 50 mls/hr Documented by: Sodium Chloride (Normal Saline) 500 mls @ 998.89 mls/hr IV STAT ONE Stop: 02/10/20 13:24 Last Admin: 02/10/20 13:51 Dose: 998.89 mls/hr Documented by: Metoprolol Tartrate (Lopressor) 12.5 mg PO Q12HR [facility] Metoprolol Tartrate (Lopressor) 25 mg PO Q12H [facility] Last Admin: 02/10/20 09:51 Dose: 25 mg Documented by: <Randell Kirby J - Last Filed: 02/11/20 22:43> Discharge Summary - Referral to Home Health Primary Care Physician: PCP None - Patient Data Vitals - Most Recent: Last Vital Signs Temp 36.8 C 02/10/20 16:54 Pulse 104 H 02/10/20 16:54 Resp 12 02/10/20 16:54 BP 110/73 02/10/20 16:54 Pulse Ox 96 02/10/20 16:54 Orthostatic Blood Pressure [ 109/72 Standing] Orthostatic Blood Pressure [ 110/71 Sitting] Orthostatic Blood Pressure [ 115/59 Supine] LES Results - Last 24 hrs: Microbiology 02/09/20 11:00 Urine Culture - Final Urine, Clean Catch MIXED LYDIA 1,000-10,000 CFU/ML Med Orders - Current: Current Medications Discontinued Medications Acetaminophen (Tylenol) 650 mg PO Q4H PRN PRN Reason: Pain (Mild 1-3)/fever Albuterol (Ventolin Hfa) 0 gm INH Q6HRRT PRN PRN Reason: Wheezing Apixaban (Eliquis) 5 mg PO BID [facility] Last Admin: 02/10/20 09:48 Dose: 5 mg Documented by: Aspirin (Aspirin) 324 mg PO ONETIME ONE Stop: 02/09/20 11:02 Last Admin: 02/09/20 11:27 Dose: 324 mg Documented by: Diltiazem HCl (Diltiazem) 10 mg IVPUSH ONETIME ONE Stop: 02/09/20 12:13 Last Admin: 02/09/20 12:39 Dose: 10 mg Documented by: Diltiazem HCl (Diltiazem) 10 mg IVPUSH Q4H PRN PRN Reason: Other Furosemide (Lasix) 20 mg PO DAILY PRN PRN Reason: SWELLING Furosemide (Lasix) 20 mg PO DAILY [facility] Last Admin: 02/10/20 09:48 Dose: 20 mg Documented by: Sodium Chloride (Normal Saline) 1,000 mls @ 999 mls/hr IV BOLUS ONE Stop: 02/09/20 12:01 Last Admin: 02/09/20 11:28 Dose: 999 mls/hr Documented by: Magnesium Sulfate (Magnesium Sulfate In Water Premix) 2 gm in 50 mls @ 50 mls/hr IV ONETIME ONE Stop: 02/09/20 13:14 Last Admin: 02/09/20 12:39 Dose: 50 mls/hr Documented by: Sodium Chloride (Normal Saline) 500 mls @ 998.89 mls/hr IV STAT ONE Stop: 02/10/20 13:24 Last Admin: 02/10/20 13:51 Dose: 998.89 mls/hr Documented by: Levothyroxine Sodium (Levothyroxine) 112 mcg PO ACBREAKFAST [facility] Last Admin: 02/10/20 07:21 Dose: 112 mcg Documented by: Metoprolol Tartrate (Lopressor) 12.5 mg PO Q12HR [facility] Metoprolol Tartrate (Lopressor) 25 mg PO Q12H [facility] Last Admin: 02/10/20 09:51 Dose: 25 mg Documented by: Metoprolol Tartrate (Lopressor) 25 mg PO TID [facility] Last Admin: 02/10/20 13:51 Dose: 25 mg Documented by: Montelukast Sodium (Singulair) 10 mg PO BEDTIME [facility] Last Admin: 02/09/20 20:27 Dose: 10 mg Documented by: Pantoprazole Sodium (Protonix) 40 mg PO BID [facility] Last Admin: 02/10/20 08:13 Dose: Not Given Documented by: Pregabalin (Lyrica) 100 mg PO TID [facility] Last Admin: 02/10/20 13:51 Dose: 100 mg Documented by: Tramadol HCl (Ultram) 100 mg PO TID PRN PRN Reason: Pain Last Admin: 02/09/20 21:24 Dose: 100 mg Documented by: - Free Text/Narrative Note: I have seen and evaluated the patient. I have discussed findings and treatment plan with resident. I agree with the assessment and plan in the following note.
== END 2020-02-10 17:30 | disposition home or self-care (01) ==
LOC: MW.ED 11:00 → MW.MS 13:31
PROVIDERS: ADMIT Internal Medicine; ATTEND Internal Medicine
DX: I48.91 Unspecified atrial fibrillation (principal); N18.9 Chronic kidney disease, unspecified; E03.9 Hypothyroidism, unspecified; I13.0 Hypertensive heart and chronic kidney disease with heart failure and stage 1 through stage 4 chronic kidney disease, or unspecified chronic kidney disease; I50.9 Heart failure, unspecified; Z88.5 Allergy status to narcotic agent; Z91.011 Allergy to milk products; Z88.8 Allergy status to other drugs, medicaments and biological substances; Z79.01 Long term (current) use of anticoagulants; E72.12 Methylenetetrahydrofolate reductase deficiency; Z20.828 Contact with and (suspected) exposure to other viral communicable diseases; Z79.899 Other long term (current) drug therapy
CPT/HCPCS: 36415; 71045; 80053; 81001; 83690; 83735; 84443; 84484; 85025; 85610; 87086; 93005; 96365; 96375; 99285; A9270; J3475; J3490; J7030; J7040; U0002; 93010; 96361; 99217; 99219; 99284; G0378

== ENCOUNTER 2020-02-16 09:58 | Emergency (ER) | payer MEDICARE, BC, OTHER ==
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
[2020-02-16] MEDS ORDERED: Diazepam 2 MG Tab PO ONE (10:16)
[2020-02-16] MEDS ORDERED: Sodium Chloride 0.9% 2.5 ML Syringe FLUSH PRN (10:16)
[2020-02-16] MEDS ORDERED: Aspirin 81 MG Tab.Chew PO ONE (10:16)
[2020-02-16] MEDS ORDERED: Sodium Chloride 0.9% 10 ML Syringe FLUSH PRN (10:16)
[2020-02-16] MEDS ORDERED: Acetaminophen 500 MG Tab PO ONE (10:26)
[2020-02-16 10:50] LABS: BLOOD UREA NITROGEN,BUN 26 mg/dL (7.0-18.0); CARBON DIOXIDE,CO2 25.7 mmol/L (21.0-32.0); CHLORIDE,CL 103 mmol/L (98-107); GLUCOSE RANDOM 112 mg/dL (74-106); POTASSIUM,K 3.7 mmol/L (3.5-5.1); SODIUM,NA 138 mmol/L (136-145)
--- NOTE | 2020-02-16 11:46 | CR ---
HISTORY: Chest pain. TECHNIQUE: One view of the chest. COMPARISON: 02/09/2020. FINDINGS: There is no acute lung infiltrate or pulmonary edema. No pneumothorax or pleural effusion. Cardiac size and pulmonary vasculature within normal limits. No acute bony abnormality. IMPRESSION: No acute disease. Dictated by Amol Schofield MD @ 02/16/2020 11:44:54 AM Dictated by: Amol Schofield MD @ 02/16/2020 11:45:00 (Electronically Signed)
== END 2020-02-16 12:04 | disposition home or self-care (01) ==
LOC: MW.ED 09:58
DX: R07.89 Other chest pain (principal); E03.9 Hypothyroidism, unspecified; I48.91 Unspecified atrial fibrillation; I11.0 Hypertensive heart disease with heart failure; I50.9 Heart failure, unspecified; Z79.01 Long term (current) use of anticoagulants; Z79.899 Other long term (current) drug therapy; Z79.82 Long term (current) use of aspirin; Z88.5 Allergy status to narcotic agent; Z91.018 Allergy to other foods; Z91.040 Latex allergy status; Z91.011 Allergy to milk products; Z91.048 Other nonmedicinal substance allergy status
CPT/HCPCS: 36415; 71045; 80053; 83605; 83735; 83880; 84484; 85025; 85610; 85730; 99285; A9270; 93010; 99284

== ENCOUNTER 2021-12-06 01:40 | Emergency (ER) | payer MEDICARE, BC ==
[2021-12-06] MEDS ORDERED: Sodium Chloride 0.9% 10 ML Syringe FLUSH PRN (02:55)
[2021-12-06] MEDS ORDERED: Sodium Chloride 0.9% 2.5 ML Syringe FLUSH PRN (02:55)
[2021-12-06 03:40] LABS: CARBON DIOXIDE,CO2 23.7 mmol/L (21.0-32.0); POTASSIUM,K 3.7 mmol/L (3.5-5.1)
[2021-12-06] MEDS ORDERED: cefTRIAXone 2 GM in Premix Bag 1 BAG IV ONE (04:10)
[2021-12-06] MEDS ORDERED: ceFAZolin/Dextrose,Iso-Osmotic 2 GM/50 ML Duplex Bag (Premix) IV SCH (04:15)
[2021-12-06] MEDS ORDERED: traMADol 50 MG Tab PO ONE ×3 (04:35→10:47)
[2021-12-06] MEDS ORDERED: Morphine 2 MG/ML SYRINGE IVPUSH ONE (11:56)
[2021-12-06] MEDS ORDERED: Ondansetron 4 MG/2 ML SDV IVPUSH ONE (11:57)
== END 2021-12-06 12:30 ==
LOC: MW.ED 01:40
DX: T81.40XA Infection following a procedure, unspecified, initial encounter (principal); I48.91 Unspecified atrial fibrillation; I11.0 Hypertensive heart disease with heart failure; I50.9 Heart failure, unspecified; E03.9 Hypothyroidism, unspecified; Z88.5 Allergy status to narcotic agent; Z91.040 Latex allergy status; Z91.011 Allergy to milk products; Z91.048 Other nonmedicinal substance allergy status; Z95.0 Presence of cardiac pacemaker; Z79.01 Long term (current) use of anticoagulants; Z20.822 Contact with and (suspected) exposure to COVID-19
CPT/HCPCS: 36415; 71045; 80053; 85025; 93005; 96365; 96375; 99285; A9270; J0696; J2270; J2405; J3490; U0002; 93010

== ENCOUNTER 2022-01-14 08:31 | Emergency (ER) | payer MEDICARE, BC ==
[2022-01-14] MEDS ORDERED: cefTRIAXone 2 GM in Sodium Chloride 0.9% 50 ML IV ONE (10:55)
[2022-01-14] MEDS ORDERED: Sodium Chloride 0.9% 10 ML Syringe FLUSH PRN (10:55)
[2022-01-14] MEDS ORDERED: Ketorolac 30 MG/ML SDV IVPUSH ONE (10:55)
[2022-01-14] MEDS ORDERED: Ondansetron 4 MG/2 ML SDV IVPUSH ONE (10:55)
[2022-01-14] MEDS ORDERED: Sodium Chloride 0.9% 2.5 ML Syringe FLUSH PRN (10:55)
[2022-01-14] MEDS ORDERED: Sodium Chloride 0.9% 1,000 ML IV ONE (10:55)
[2022-01-14] MEDS ORDERED: Acyclovir 200 MG Cap PO ONE (10:57)
[2022-01-14] MEDS ORDERED: fentaNYL 50 MCG/ML SDV IVPUSH ONE ×2 (10:57→14:17)
[2022-01-14 13:35] LABS: BLOOD UREA NITROGEN,BUN 18 mg/dL (7.0-18.0); CARBON DIOXIDE,CO2 30.5 mmol/L (21.0-32.0); CHLORIDE,CL 103 mmol/L (98-107); GLUCOSE RANDOM 95 mg/dL (74-106); POTASSIUM,K 4.8 mmol/L (3.5-5.1); SODIUM,NA 138 mmol/L (136-145)
[2022-01-14 13:38] LABS: ESTIMATED GFR 37 mL/min (>60)
[2022-01-14] MEDS ORDERED: Iopamidol 755 MG/ML 500 ML Multipack Bottle IVPUSH STA (15:17)
== END 2022-01-14 15:59 | disposition home or self-care (01) ==
LOC: MW.ED 08:31
DX: R51.9 Headache, unspecified (principal); I11.0 Hypertensive heart disease with heart failure; I50.9 Heart failure, unspecified; Z88.5 Allergy status to narcotic agent; Z91.018 Allergy to other foods; Z91.040 Latex allergy status; Z91.011 Allergy to milk products; Z79.899 Other long term (current) drug therapy; Z86.16 Personal history of COVID-19; Z90.710 Acquired absence of both cervix and uterus
CPT/HCPCS: 36415; 70450; 70498; 80053; 83605; 85025; 85652; 86140; 96361; 96365; 96375; 96376; 99284; A9270; J0696; J1885; J2405; J3010; J3490; J7030; Q9967

== ENCOUNTER 2022-01-16 11:02 | Emergency (ER) | payer MEDICARE, BC ==
[2022-01-16] MEDS ORDERED: Acetaminophen/HYDROcodone 325-5 MG Tab PO ONE (12:35)
== END 2022-01-16 13:57 | disposition home or self-care (01) ==
LOC: MW.ED 11:02
DX: R51.9 Headache, unspecified (principal); I11.0 Hypertensive heart disease with heart failure; I50.9 Heart failure, unspecified; I48.91 Unspecified atrial fibrillation; Z91.011 Allergy to milk products; Z88.5 Allergy status to narcotic agent; Z91.040 Latex allergy status; Z91.048 Other nonmedicinal substance allergy status; Z79.899 Other long term (current) drug therapy
CPT/HCPCS: 99283; A9270

== ENCOUNTER 2022-04-08 07:45 | Emergency (ER) | payer MEDICARE, BC ==
[2022-04-08] MEDS: diphenhydrAMINE 50 MG/ML SDV IVPUSH ONE ×2 (08:18→08:19)
[2022-04-08 08:57] LABS: BLOOD UREA NITROGEN,BUN 25 mg/dL (7.0-18.0); CARBON DIOXIDE,CO2 28.3 mmol/L (21.0-32.0); CHLORIDE,CL 105 mmol/L (98-107); GLUCOSE RANDOM 117 mg/dL (74-106); POTASSIUM,K 4.7 mmol/L (3.5-5.1); SODIUM,NA 141 mmol/L (136-145)
[2022-04-08 09:02] LABS: ESTIMATED GFR 37 mL/min (>60)
== END 2022-04-08 09:49 | disposition home or self-care (01) ==
LOC: MW.ED 07:45
DX: L08.9 Local infection of the skin and subcutaneous tissue, unspecified (principal); I48.91 Unspecified atrial fibrillation; I11.0 Hypertensive heart disease with heart failure; I50.9 Heart failure, unspecified; E03.9 Hypothyroidism, unspecified; Z88.5 Allergy status to narcotic agent; Z91.018 Allergy to other foods; Z91.040 Latex allergy status; Z91.011 Allergy to milk products; Z91.048 Other nonmedicinal substance allergy status; Z79.899 Other long term (current) drug therapy
CPT/HCPCS: 36415; 71045; 71045-26; 80053; 84484; 85025; 85379; 86140; 93005; 99283; J1200

== ENCOUNTER 2023-03-20 09:19 | Emergency (ER) | payer MEDICARE, BC ==
[2023-03-20] MEDS ORDERED: Ondansetron 4 MG/2 ML SDV IVPUSH ONE (10:14)
[2023-03-20] MEDS ORDERED: Morphine 4 MG/ML Syringe IVPUSH ONE (10:14)
[2023-03-20] MEDS ORDERED: Sodium Chloride 0.9% 1,000 ML IV ONE (10:14)
[2023-03-20] MEDS ORDERED: fentaNYL 50 MCG/ML SDV IVPUSH ONE (10:16)
[2023-03-20 10:42] LABS: BASOPHILS ABSOLUTE AUTO 0.04 K/uL (0.00-0.20); BASOPHILS PERCENT AUTO 0.7 % (0.0-1.0); EOSINOPHILS ABSOLUTE AUTO 0.07 K/uL (0.00-0.45); EOSINOPHILS PERCENT AUTO 1.2 % (0.0-6.0); HEMATOCRIT 42.4 % (37.0-47.0); HEMOGLOBIN 14.6 g/dL (12.0-16.0); IMMATURE GRAN ABSOLUTE AUTO 0.01 K/uL (0.00-0.05); IMMATURE GRAN PERCENT AUTO 0.2 % (0.0-0.4); LYMPHOCYTES ABSOLUTE AUTO 2.08 K/uL (1.00-4.80); MEAN CORPUSCULAR HEMOGLOBIN 30.7 pg (28.0-32.0); MEAN CORPUSCULAR HGB CONC 34.4 g/dL (32.0-36.0); MEAN CORPUSCULAR VOLUME 89.1 fL (83.0-99.0); MEAN PLATELET VOLUME 11.8 fL (9.4-12.3); MONOCYTES ABSOLUTE AUTO 0.54 K/uL (0.00-0.80); MONOCYTES PERCENT AUTO 9.1 % (0.0-8.0); NEUTROPHILS ABSOLUTE AUTO 3.21 K/uL (1.80-7.70); NEUTROPHILS PERCENT AUTO 53.8 % (41.0-71.0); PLATELET COUNT,PLT 148 K/uL (150-400); RED BLOOD CELL COUNT 4.76 M/uL (4.10-5.30); WHITE BLOOD CELL COUNT,WBC 5.95 K/uL (3.9-11.3)
[2023-03-20 11:10] LABS: ALBUMIN 3.6 g/dL (3.4-5.0); BILIRUBIN TOTAL 0.3 mg/dL (0.2-1.0); CALCIUM 9.1 mg/dL (8.5-10.1); CARBON DIOXIDE,CO2 26.4 mmol/L (21.0-32.0); CREATININE 1.6 mg/dL (0.6-1.0); EST CRCL DRUG DOSING (CG) 30.63 mL/min; MAGNESIUM 2.3 mg/dL (1.8-2.4); POTASSIUM,K 4.2 mmol/L (3.5-5.1); PROTEIN TOTAL,TP 7.1 g/dL (6.4-8.2)
[2023-03-20 11:17] LABS: CORONAVIRUS COVID-19 NAA NEGATIVE (NEGATIVE); INFLUENZA A NAA NEGATIVE (NEGATIVE); INFLUENZA B NAA NEGATIVE (NEGATIVE)
== END 2023-03-20 12:50 | disposition home or self-care (01) ==
LOC: MW.ED 09:19
DX: R10.12 Left upper quadrant pain (principal); Z20.822 Contact with and (suspected) exposure to COVID-19; Z86.16 Personal history of COVID-19; I11.0 Hypertensive heart disease with heart failure; I50.9 Heart failure, unspecified; E03.9 Hypothyroidism, unspecified; Z79.899 Other long term (current) drug therapy; Z88.8 Allergy status to other drugs, medicaments and biological substances; Z88.5 Allergy status to narcotic agent; Z91.040 Latex allergy status; Z91.018 Allergy to other foods; Z91.011 Allergy to milk products
CPT/HCPCS: 0240U; 36415; 80053; 83605; 83690; 83735; 84484; 85025; 96361; 96374; 96375; 99284; J2405; J3010; J7030